=== PATIENT | male | born 2000 | race Caucasian/White ===

== ENCOUNTER 2020-08-23 04:36 | Emergency (ER) | payer OTHER, SELFPAY ==
[2020-08-23 05:20] VITALS: BP 128/72; PULSE 70; RESP 16; TEMP 35.8; O2SAT 100
[2020-08-23 05:54] LABS: MANUAL DIFF FLAG NO
[2020-08-23 05:55] LABS: Basophils Percent Auto 0.3 % (0-2); Eosinophils Absolute Auto 0.1 X10*3/uL (0.0-0.4); Eosinophils Percent Auto 0.9 % (0-4); Hematocrit 45.9 % (42-52); Hemoglobin 15.6 g/dl (14.0-18.0); Imm Gran Abs Auto 0.02 X10*3/uL (0.00-0.03); Imm Gran Pct Auto 0.2 % (0.0-0.4); Lymphocytes Absolute Auto 2.6 X10*3/uL (1.2-4.9); Lymphocytes Percent Auto 23.8 % (20-40); Mean Corpuscular Volume 91.3 fL (80-98); Mean Platelet Volume 10.5 fL (9.4-12.4); Monocytes Absolute Auto 0.9 X10*3/uL (0.1-1.2); Monocytes Percent Auto 7.7 % (2-11); Neutrophils Absolute Auto 7.4 X10*3/uL (2.0-8.3); Neutrophils Percent Auto 67.1 % (45-73); Platelet Count 308 X10*3/uL (160-400); Red Blood Count 5.03 X10*6/uL (4.60-5.80); Red Cell Distribution Width 11.9 % (11.0-16.0)
[2020-08-23 06:22] LABS: Alanine Aminotransferase 11 U/L (0-40); Albumin Level 4.3 g/dL (3.5-5.0); Alkaline Phosphatase 53 U/L (39-117); Anion Gap 10 (12-20); Aspartate Amino Transferase 10 U/L (5-37); Bilirubin Total 0.6 mg/dL (0.0-1.0); Blood Urea Nitrogen 17 mg/dL (9-16); Calcium 9.2 mg/dL (8.4-10.2); Carbon Dioxide 26 mmol/L (22-29); Chloride 105 mmol/L (96-108); Creatinine Clr Calc Pharmacy 103.4; Estimated Glomerular Filt Rate > 60; Glucose Random 93 mg/dL (60-115); Lipase 23 U/L (8-78); Potassium 3.9 mmol/l (3.3-5.1); Sodium 137 mmol/L (135-145); Total Protein 7.4 g/dL (6.5-8.0)
--- NOTE | 2020-08-23 06:41 | ED.ABDPAIN ---
HPI - Abdominal Pain General Chief Complaint: Abdominal Pain Stated Complaint: ABD PAIN Time Seen by Provider: 08/23/20 06:41 Source: patient Mode of arrival: ambulatory Limitations: no limitations History of Present Illness MD elicited complaint: abdominal pain Onset (ago): day(s) (yesterday) Pain Consistency: constant Location: epigastric Severity: moderate Quality: stabbing Radiation: none Migration to: no migration Exacerbating factors: eating Relieving factors: nothing Associated symptoms: nausea Related Data Home Medications Medication Instructions Recorded Confirmed omeprazole 1 cap PO DAILY 08/23/20 08/23/20 Previous Rx's Medication Instructions Recorded dicyclomine 20 mg PO TID PRN #30 tab 08/23/20 ondansetron HCl [Zofran] 4 mg PO Q8H PRN #20 tab 08/23/20 Allergies Allergy/AdvReac Type Severity Reaction Status Date / Time No Known Allergies Allergy Verified 08/23/20 06:42 Review of Systems Review of Systems Constitutional : No Weight loss, No Fever, No Chills ENT/Mouth : No sore throat, No Rhinorrhea Eyes: No Swelling, No Redness Cardiovascular : No Chest Pain, No SOB, NoEdema Respiratory : No Cough, No Sputum, No Wheezing Gastrointestinal : Positive Nausea, no Vomiting, no Diarrhea, positive abdominal Pain, No Hematochezia, No Melena Genitourinary : No Dysuria, No Urinary Frequency, No Hematuria, No Urgency Musculoskeletal : No joint pain, No Myalgias, No Joint Swelling Skin : No Skin Lesions, No rash Neuro : No Weakness, No Numbness, No Dizziness, No Headache Psych : No Anxiety/Panic, No Depression Heme/Lymph: No Bruising, No Lymphadenopathy Endocrine : No Polyuria, No Polydipsia All other systems reviewed and are negative. Physical Exam Vital Signs and I&O and Narrative: Vital Signs and I&O: Vital Signs Temp 97.8 F 08/23/20 09:56 Pulse 63 08/23/20 09:56 Resp 18 08/23/20 09:56 BP 108/58 L 08/23/20 09:56 Pulse Ox 100 08/23/20 09:56 Intake & Output 08/22/20 08/23/20 08/23/20 18:59 06:59 18:59 Intake Total 1000 / 1000 Balance 1000 / 1000 Weight 54.431 kg Intake: Intake, IV Amoun t 1000 / 1000 0.9 % Sodium C hloride 1,000 ml 1000 / 1000 @ 999 mls/hr I VCONT .Q1H1M [facility] Rx#:[id number] Body Mass Index 20.0 Appearance: Alert. Oriented X3. No acute distress. Eyes: Pupils equal, round and reactive to light. ENT: Pharynx normal. Neck: Normal inspection. Neck supple. CVS: Normal heart rate and rhythm. Pulses normal. Respiratory: No respiratory distress. Breath sounds normal. Abdomen: Soft and mild ttp to epigastric area Skin: Skin warm and dry. Normal skin color. Normal skin turgor. Extremities: No lower extremity edema. No lower extremity edema. Neuro: Oriented X 3. No motor deficit. No sensory deficit. Course Course Course Narrative: no acute findings, labs reassuring stable for DC MDM - Abdominal Pain MDM Narrative Medical decision making narrative: patient with hx of Hirschsprungs disease here with abdominal pain and nausea, hx of SBO in the past, at this time given his history and pain will need labs, IV morphine, CT scan for obstruction/infection, dispo per results and findings Lab Data Result diagrams: 08/23/20 05:49 08/23/20 05:49 Labs: Lab Results 08/23/20 08/23/20 08/23/20 Range/Units 05:49 05:49 05:49 WBC 11.0 H (4.8-10.8) X10*3/uL RBC 5.03 (4.60-5.80) X10*6/uL Hgb 15.6 (14.0-18.0) g/dl Hct 45.9 (42-52) % MCV 91.3 (80-98) fL MCH 31.0 (27.0-33.0) pg MCHC 34.0 (31.0-36.0) g/dl RDW 11.9 (11.0-16.0) % Plt Count 308 (160-400) X10*3/uL MPV 10.5 (9.4-12.4) fL Immature Gran % (Auto) 0.2 (0.0-0.4) % Neut % (Auto) 67.1 (45-73) % Lymph % (Auto) 23.8 (20-40) % [place] % (Auto) 7.7 (2-11) % Eos % (Auto) 0.9 (0-4) % Baso % (Auto) 0.3 (0-2) % Neut # (Auto) 7.4 (2.0-8.3) X10*3/uL Lymph # (Auto) 2.6 (1.2-4.9) X10*3/uL [place]ha # (Auto) 0.9 (0.1-1.2) X10*3/uL Eos # (Auto) 0.1 (0.0-0.4) X10*3/uL Baso # (Auto) 0.0 (0.0-0.2) X10*3/uL Abs Immat Gran (auto) 0.02 (0.00-0.03) X10*3/uL Absolute Nucleated RBC 0.000 (0.0-0.012) X10*3/uL Nucleated RBC % (auto) 0.0 (0.0-0.2) /100WBC Hold Blue Top SEE NOTE Sodium 137 (135-145) mmol/L Potassium 3.9 (3.3-5.1) mmol/l Chloride 105 (96-108) mmol/L Carbon Dioxide 26 (22-29) mmol/L Anion Gap 10 L (12-20) BUN 17 H (9-16) mg/dL Creatinine 0.87 (0.5-1.4) mg/dL Estim Creat Clear Calc 103.4 Estimated GFR > 60 Random Glucose 93 (60-115) mg/dL Calcium 9.2 (8.4-10.2) mg/dL Total Bilirubin 0.6 (0.0-1.0) mg/dL AST 10 (5-37) U/L ALT 11 (0-40) U/L Alkaline Phosphatase 53 (39-117) U/L Total Protein 7.4 (6.5-8.0) g/dL Albumin 4.3 (3.5-5.0) g/dL Lipase 23 (8-78) U/L Urine pH (5.0-8.0) Ur Specific [place] (1.005-1.025) Urine Protein (NEG-TRACE) MG/DL Urine Glucose (UA) (NEG) MG/DL Urine Ketones (NEG) MG/DL Urine Blood (NEG) Urine Nitrite (NEG) Ur Leukocyte Esterase (NEG) 10/06/20 Range/Units 08:55 WBC (4.8-10.8) X10*3/uL RBC (4.60-5.80) X10*6/uL Hgb (14.0-18.0) g/dl Hct (42-52) % MCV (80-98) fL MCH (27.0-33.0) pg MCHC (31.0-36.0) g/dl RDW (11.0-16.0) % Plt Count (160-400) X10*3/uL MPV (9.4-12.4) fL Immature Gran % (Auto) (0.0-0.4) % Neut % (Auto) (45-73) % Lymph % (Auto) (20-40) % [place] % (Auto) (2-11) % Eos % (Auto) (0-4) % Baso % (Auto) (0-2) % Neut # (Auto) (2.0-8.3) X10*3/uL Lymph # (Auto) (1.2-4.9) X10*3/uL [place] # (Auto) (0.1-1.2) X10*3/uL Eos # (Auto) (0.0-0.4) X10*3/uL Baso # (Auto) (0.0-0.2) X10*3/uL Abs Immat Gran (auto) (0.00-0.03) X10*3/uL Absolute Nucleated RBC (0.0-0.012) X10*3/uL Nucleated RBC % (auto) (0.0-0.2) /100WBC Hold Blue Top Sodium (135-145) mmol/L Potassium (3.3-5.1) mmol/l Chloride (96-108) mmol/L Carbon Dioxide (22-29) mmol/L Anion Gap (12-20) BUN (9-16) mg/dL Creatinine (0.5-1.4) mg/dL Estim Creat Clear Calc Estimated GFR Random Glucose (60-115) mg/dL Calcium (8.4-10.2) mg/dL Total Bilirubin (0.0-1.0) mg/dL AST (5-37) U/L ALT (0-40) U/L Alkaline Phosphatase (39-117) U/L Total Protein (6.5-8.0) g/dL Albumin (3.5-5.0) g/dL Lipase (8-78) U/L Urine pH 6.0 (5.0-8.0) Ur Specific [place] <= 1.005 (1.005-1.025) Urine Protein NEG (NEG-TRACE) MG/DL Urine Glucose (UA) NEG (NEG) MG/DL Urine Ketones NEG (NEG) MG/DL Urine Blood NEG (NEG) Urine Nitrite NEG (NEG) Ur Leukocyte Esterase NEG (NEG) Discharge Plan Discharge Clinical Impression: Abdominal pain Patient Disposition: Home, Self-Care Instructions: Abdominal Pain (ED) Additional Instructions: increase omeprazole to 40mg daily Prescriptions: New ondansetron HCl [Zofran] 4 mg tablet 4 mg PO Q8H PRN (Reason: nausea and vomiting) Qty: 20 RF: 0 dicyclomine 20 mg tablet 20 mg PO TID PRN (Reason: cramps) Qty: 30 RF: 0 No Action omeprazole 20 mg capsule,delayed release(DR/EC) 1 cap PO DAILY RF: 0 Stand Alone Forms: Work/School Release [facility] Past Medical History Medical History (Updated 08/23/20 @ 10:12 by Concepcion Kaur DO) Acid reflux Hirschsprung's disease Social History Social History (Updated 08/23/20 @ 06:55 by Concepcion Kaur DO) Alcohol intake: never Smoking Status: Never smoker Advance Directives: No Advance Directives Information Provided: No
--- NOTE | 2020-08-23 06:42 | CT_ITS ---
EXAMINATION: CT ABDOMEN AND PELVIS WITH CONTRAST CLINICAL INFORMATION: Epigastric pain COMPARISON: None TECHNIQUE: Multidetector volumetric images were obtained from the superior aspect of the liver through the pubic symphysis following administration 85 mL of Omnipaque 350 intravenous contrast. Sagittal and coronal reformatted images were obtained on the technologist's workstation. Oral contrast: No This CT examination was performed using dose optimization techniques as appropriate, variously including the following: *Automated exposure control *Adjustment of mA and/or kV according to patient size (this includes techniques or standardized protocols for targeted exams where dose is matched to indication/reason for exam; i.e. extremities or head) *Use of iterative reconstruction technique DLP: 288 mGy-cm FINDINGS: LUNG BASES: The visualized lung bases are unremarkable. LIVER, GALLBLADDER, AND BILIARY TREE: The liver is normal in size, shape, and attenuation. No focal hepatic lesion or biliary ductal dilatation is present. The gallbladder is unremarkable with no evidence of radiopaque gallstones, gallbladder wall thickening, or obvious pericholecystic inflammatory changes. PANCREAS: Homogeneous enhancement. No inflammatory changes. SPLEEN: Unremarkable. ADRENAL GLANDS: Unremarkable. KIDNEYS AND URETERS: The kidneys are normal in size, shape, and attenuation. No hydronephrosis, hydroureter, or calculi seen. No perinephric stranding. Small hypodense lesions in bilateral kidneys, too small to characterize, statistically probably cysts. BLADDER: Unremarkable. GASTROINTESTINAL TRACT: Lack of intra-abdominal fat limits evaluation. Stomach is nondistended limiting evaluation. No dilated small or large bowel loops is seen. Moderate fecal matter in the large colon. No colonic wall thickening or pericolonic inflammatory changes are seen. There are surgical clips in the pelvis. No dilated small bowel loops. Cecum is in the right upper quadrant. The appendix is not visualized. A tubular structure suspected to be the appendix in the right upper quadrant, appears unremarkable. No inflammatory change is evident in this region. No free fluid or free air. ABDOMINAL WALL: No significant hernia is appreciated. LYMPH NODES: No pathologically enlarged lymph nodes identified. VASCULAR: Normal caliber aorta. Portal vein is enhancing. PELVIC VISCERA: Within normal limits. OSSEOUS STRUCTURES: No acute or suspicious osseous abnormality seen. IMPRESSION: 1. No acute findings identified in the abdomen or pelvis. Etiology of the patient's symptoms has not been determined. 2. Lack of intra-abdominal fat limiting evaluation. The stomach is nondistended.
[2020-08-23] MEDS: ondansetron HCL 4 MG/2 ML VIAL IVPUSH (07:06)
[2020-08-23] MEDS: 0.9 % Sodium Chloride 1,000 ML 999 ML IVCONT (07:06)
[2020-08-23] MEDS: Morphine Sulfate 4 MG/ML CARTRIDGE IVPUSH (07:07)
[2020-08-23 07:09] VITALS: BP 113/62; RESP 16; O2SAT 100
--- NOTE | 2020-08-23 07:24 | PC.NURSE ---
REPORT FROM [facility]. AWAITING CT ABD. MEDICATED PER ORDERS
[2020-08-23] MEDS: diphenhydrAMINE HCL 50 MG/ML VIAL 25 MG IVPUSH (07:44)
--- NOTE | 2020-08-23 07:45 | PC.NURSE ---
pt with fine scattered hives s/p morphiine. no other signs allergic rx
--- NOTE | 2020-08-23 08:32 | PC.NURSE ---
off unit to ct
[2020-08-23 08:46] VITALS: BP 123/71; PULSE 81; O2SAT 100
[2020-08-23] MEDS: iohexoL 350 MG/ML 100 ML INFUS..BTL IV (08:55)
[2020-08-23 09:02] LABS: Glucose Urine UA NEG (NEG); Leukocyte Esterase Urine NEG (NEG); Nitrite Urine NEG (NEG); Specific Gravity - Urine <= 1.005 (1.005-1.025); Urine Blood NEG (NEG); Urine Ketones NEG (NEG); Urine Protein NEG (NEG-TRACE)
[2020-08-23] MEDS: Ketorolac Tromethamine 15 MG/ML VIAL 30 MG IV (09:05)
--- NOTE | 2020-08-23 09:06 | PC.NURSE ---
MEDICATED WITH TORADOL FOR CONTINUING PAIN
[2020-08-23 09:56] VITALS: BP 108/58; PULSE 63; RESP 18; TEMP 36.6; O2SAT 100
[2020-08-23 11:20] LABS: Appearance Urine CLEAR; Color Urine YELLOW
== END 2020-08-23 10:36 | disposition home or self-care (01) ==
PROVIDERS: Emergency Provider Emergency Medicine; PCP Internal Medicine
DX: R10.9 Unspecified abdominal pain (principal)
CPT/HCPCS: 36415; 74177; 80053; 81003; 83690; 85025; 96361; 96374; 96375; 99284; J1200; J1885; J2270; J2405

== ENCOUNTER 2021-03-29 02:22 | Emergency (ER) | payer OTHER, SELFPAY ==
--- NOTE | ~2021-03-29 | XR_ITS ---
EXAMINATION: XR CHEST CLINICAL INFORMATION: Shortness of breath COMPARISON: 12/14/2019 TECHNIQUE: Frontal view of the chest was obtained. FINDINGS: The lungs are well expanded. There is no focal consolidation, edema, or effusion. No pneumothorax. The cardiomediastinal silhouette is within normal limits. No acute osseous abnormality. XR/XR chest 1V IMPRESSION: No acute pulmonary finding.
[2021-03-29 02:27] VITALS: BP 134/91; PULSE 87; RESP 22; TEMP 36.6; O2SAT 100; BMI 20.7
--- NOTE | 2021-03-29 02:34 | ECG_ITS ---
Test Reason : SOB Blood Pressure : / mmHG Vent. Rate : 066 BPM Atrial Rate : 066 BPM P-R Int : 114 ms QRS Dur : 092 ms QT Int : 364 ms P-R-T Axes : 042 080 019 degrees QTc Int : 381 ms Normal sinus rhythm Normal ECG No previous ECGs available Referred By: Kay Mcgarry Electronically Signed By:Logan Machuca
--- NOTE | 2021-03-29 02:41 | ED.SOB ---
HPI - SOB/Dyspnea General Chief Complaint: Dyspnea Stated Complaint: sob Time Seen by Provider: 03/29/21 02:28 Source: patient Mode of arrival: ambulatory Limitations: no limitations History of Present Illness HPI Narrative: Patient comes to emergency room reporting shortness of breath, starting 1 hour prior to arrival, midsternal chest tightness. Patient states that shortness of breath became worse 30 minutes prior to arrival. Patient states people at his house smoke which worsened shortness of breath. On arrival, oxygen saturation 100% on room air Related Data Home Medications Medication Instructions Recorded Confirmed omeprazole 1 cap PO DAILY 08/23/20 08/23/20 Previous Rx's Medication Instructions Recorded dicyclomine 20 mg PO TID PRN #30 tab 08/23/20 ondansetron HCl [Zofran] 4 mg PO Q8H PRN #20 tab 08/23/20 fluticasone propionate [Flonase 1 spray INTRANASAL Q12H #16 g 03/29/21 Allergy Relief] Allergies Allergy/AdvReac Type Severity Reaction Status Date / Time No Known Allergies Allergy Verified 03/29/21 02:26 Review of Systems Review of Systems: Constitutional : No Weight loss, No Fever, No Chills, No Night Sweats, No Fatigue, No Malaise ENT/Mouth : No Hearing loss, No Ear Pain, No Nasal Congestion, No Sinus Pain, No Hoarseness, No sore throat, No Rhinorrhea, No Swallowing Difficulty Eyes: No Eye Pain, No Swelling, No Redness, No Foreign Body, No Discharge, No Vision Changes Cardiovascular : Complaining of chest tightness, No Edema, No Palpitations Respiratory : Complaining of dry Cough, No Sputum, No Wheezing, No Smoke Exposure, complaining of acute onset shortness of breath Gastrointestinal : No Nausea, No Vomiting, No Diarrhea, No Constipation, No abdominal Pain, No Hematochezia, No Melena Genitourinary : no irregular bleeding, No Dysuria, No Urinary Frequency, No Hematuria, No Urinary Incontinence, No Urgency, No Flank Pain, No Urinary Flow Changes, No Hesitancy Musculoskeletal : No joint pain, No Myalgias, No Joint Swelling Skin : No Skin Lesions, No rash Neuro : No Weakness, No Numbness, No Paresthesias, No Loss of Consciousness, No Dizziness, No Headache Psych : No Anxiety/Panic, No Depression, No SI/HI/AH/VH, No Social Issues, Heme/Lymph: No Bruising, No Bleeding,No Lymphadenopathy Endocrine : No Polyuria, No Polydipsia, No Temperature Intolerance [facility] Past Medical History Medical History (Updated 03/29/21 @ 04:19 by Kay Mcgarry MD) Acid reflux Hirschsprung's disease Social History Social History (Updated 08/23/20 @ 06:55 by Concepcion Kaur DO) Alcohol intake: never Smoking Status: Never smoker Advance Directives: No Physical Exam Vital Signs: Vital Signs: Last Vital Signs Temp 97.8 F 03/29/21 02:27 Pulse 87 03/29/21 02:27 Resp 22 H 03/29/21 02:27 BP 134/91 H 03/29/21 02:27 Pulse Ox 100 03/29/21 02:27 Body Mass Index 20.7 Appearance: Alert. Oriented X3. No acute distress. Very anxious, speaking in full sentences Eyes: Pupils equal, round and reactive to light. ENT: Pharynx normal. Neck: Normal inspection. Neck supple. No lymph nodes noted. No crepitus CVS: Normal heart rate and rhythm. Pulses normal. Normal S1 and S2 Respiratory: No respiratory distress. Breath sounds normal. No Wheezing. No rales Abdomen: Soft and nontender. No rigidity. No distention. good BS x4 Skin: Skin warm and dry. Normal skin color. Normal skin turgor. Extremities: No lower extremity edema. No lower extremity edema. No Lacerations. No Rash Neuro: Oriented X 3. No motor deficit. No sensory deficit. Moving all extermities. No slurred speech. Course Course Course Narrative: On arrival, patient is very anxious, stated that he could not speak due to shortness of breath. Once he was informed that his oxygen saturation is 100% and that his lungs are clear, no wheezing, he was able to immediately speaking full sentences. Patient states that he has never had anxiety/panic attacks. Patient states he has good relief of symptoms after 1 tablet of p.o. Ativan I discussed the labs with the patient, no acute findings. Patient requesting her medication for his nasal congestion. Patient states he is already taking Catherine but is not working well. MDM - SOB/Dyspnea Lab Data Result diagrams: 03/29/21 02:54 03/29/21 02:54 Labs: Lab Results 03/29/21 03/29/21 03/29/21 Range/Units 02:54 02:54 02:54 WBC 9.8 (4.8-10.8) X10*3/uL RBC 5.58 (4.60-5.80) X10*6/uL Hgb 17.0 (14.0-18.0) g/dl Hct 49.7 (42-52) % MCV 89.1 (80-98) fL MCH 30.5 (27.0-33.0) pg MCHC 34.2 (31.0-36.0) g/dl RDW 11.7 (11.0-16.0) % Plt Count 333 (160-400) X10*3/uL MPV 10.2 (9.4-12.4) fL Immature Gran % (Auto) 0.2 (0.0-0.4) % Neut % (Auto) 57.3 (45-73) % Lymph % (Auto) 29.1 (20-40) % [place] % (Auto) 8.1 (2-11) % Eos % (Auto) 4.8 H (0-4) % Baso % (Auto) 0.5 (0-2) % Lymph # (Auto) 2.8 (1.2-4.9) X10*3/uL [place] # (Auto) 0.8 (0.1-1.2) X10*3/uL Eos # (Auto) 0.5 H (0.0-0.4) X10*3/uL Baso # (Auto) 0.1 (0.0-0.2) X10*3/uL Abs Immat Gran (auto) 0.02 (0.00-0.03) X10*3/uL Absolute Neuts (auto) 5.6 (2.0-8.3) X10*3/uL Absolute Nucleated RBC 0.000 (0.0-0.012) X10*3/uL Nucleated RBC % (auto) 0.0 (0.0-0.2) /100WBC D-Dimer < 200 NG/ML Sodium 139 (135-145) mmol/L Potassium 4.1 (3.3-5.1) mmol/L Chloride 103 (96-108) mmol/L Carbon Dioxide 25 (22-29) mmol/L Anion Gap 15 (12-20) BUN 15 (9-16) mg/dL Creatinine 0.92 (0.5-1.4) mg/dL Estim Creat Clear Calc 100.3 Estimated GFR > 60 Random Glucose 97 (60-115) mg/dL Calcium 10.6 H D (8.4-10.2) mg/dL Troponin I High Sens (<3.5-35.0) ng/L COVID-19 (CHRISTINA) (Negative) COVID-19 Clin Com 03/29/21 03/29/21 Range/Units 02:54 02:54 WBC (4.8-10.8) X10*3/uL RBC (4.60-5.80) X10*6/uL Hgb (14.0-18.0) g/dl Hct (42-52) % MCV (80-98) fL MCH (27.0-33.0) pg MCHC (31.0-36.0) g/dl RDW (11.0-16.0) % Plt Count (160-400) X10*3/uL MPV (9.4-12.4) fL Immature Gran % (Auto) (0.0-0.4) % Neut % (Auto) (45-73) % Lymph % (Auto) (20-40) % [place] % (Auto) (2-11) % Eos % (Auto) (0-4) % Baso % (Auto) (0-2) % Lymph # (Auto) (1.2-4.9) X10*3/uL [place] # (Auto) (0.1-1.2) X10*3/uL Eos # (Auto) (0.0-0.4) X10*3/uL Baso # (Auto) (0.0-0.2) X10*3/uL Abs Immat Gran (auto) (0.00-0.03) X10*3/uL Absolute Neuts (auto) (2.0-8.3) X10*3/uL Absolute Nucleated RBC (0.0-0.012) X10*3/uL Nucleated RBC % (auto) (0.0-0.2) /100WBC D-Dimer NG/ML Sodium (135-145) mmol/L Potassium (3.3-5.1) mmol/L Chloride (96-108) mmol/L Carbon Dioxide (22-29) mmol/L Anion Gap (12-20) BUN (9-16) mg/dL Creatinine (0.5-1.4) mg/dL Estim Creat Clear Calc Estimated GFR Random Glucose (60-115) mg/dL Calcium (8.4-10.2) mg/dL Troponin I High Sens < 3.5 (<3.5-35.0) ng/L COVID-19 (CHRISTINA) Negative (Negative) COVID-19 Clin Com See Note Imaging Data Chest x-ray: Radiologist's impression: The lungs are well expanded. There is no focal consolidation, edema, or effusion. No pneumothorax. The cardiomediastinal silhouette is within normal limits. No acute osseous abnormality. XR/XR chest 1V IMPRESSION: No acute pulmonary finding. ECG Data Attestation: I personally reviewed and interpreted this ECG as follows: (Sinus rhythm, heart rate 66, no ST segment depression or elevation, nonspecific T-wave inversion in lead 3, QTC 381) Discharge Plan Discharge Clinical Impression: Congested nose, Anxiety, Shortness of breath Patient Disposition: Home, Self-Care Instructions: Dyspnea (ED), Anxiety (ED) Additional Instructions: Please follow-up with your primary care physician tomorrow. If you have any worsening or new symptoms, please return to the emergency room or call 911 Prescriptions: New fluticasone propionate [Flonase Allergy Relief] 50 mcg/actuation spray,suspension 1 spray intranasal Q12H Qty: 16 RF: 0 No Action omeprazole 20 mg capsule,delayed release(DR/EC) 1 cap PO DAILY RF: 0 ondansetron HCl [Zofran] 4 mg tablet 4 mg PO Q8H PRN (Reason: nausea and vomiting) Qty: 20 RF: 0 dicyclomine 20 mg tablet 20 mg PO TID PRN (Reason: cramps) Qty: 30 RF: 0
[2021-03-29] MEDS: LORazepam 1 MG TABLET PO (02:52)
[2021-03-29 03:01] LABS: Basophils Absolute Auto 0.1 X10*3/uL (0.0-0.2); Basophils Percent Auto 0.5 % (0-2); Eosinophils Absolute Auto 0.5 X10*3/uL (0.0-0.4); Eosinophils Percent Auto 4.8 % (0-4); Hematocrit 49.7 % (42-52); Imm Gran Abs Auto 0.02 X10*3/uL (0.00-0.03); Imm Gran Pct Auto 0.2 % (0.0-0.4); Lymphocytes Absolute Auto 2.8 X10*3/uL (1.2-4.9); Lymphocytes Percent Auto 29.1 % (20-40); MANUAL DIFF FLAG NO; Mean Corpuscular HGB Conc 34.2 g/dl (31.0-36.0); Mean Corpuscular Hemoglobin 30.5 pg (27.0-33.0); Mean Corpuscular Volume 89.1 fL (80-98); Mean Platelet Volume 10.2 fL (9.4-12.4); Monocytes Absolute Auto 0.8 X10*3/uL (0.1-1.2); Monocytes Percent Auto 8.1 % (2-11); Neutrophils Absolute Auto 5.6 X10*3/uL (2.0-8.3); Neutrophils Percent Auto 57.3 % (45-73); Platelet Count 333 X10*3/uL (160-400); Red Blood Count 5.58 X10*6/uL (4.60-5.80); Red Cell Distribution Width 11.7 % (11.0-16.0); White Blood Count 9.8 X10*3/uL (4.8-10.8)
[2021-03-29 03:12] LABS: D Dimer < 200 NG/ML
[2021-03-29 03:18] LABS: COVID-19 Test Negative (Negative); IDNOW Serial# 9DD0AD1C
[2021-03-29 03:30] LABS: Anion Gap 15 (12-20); Blood Urea Nitrogen 15 mg/dL (9-16); Calcium 10.6 mg/dL (8.4-10.2); Carbon Dioxide 25 mmol/L (22-29); Chloride 103 mmol/L (96-108); Creatinine Clr Calc Pharmacy 100.3; Estimated Glomerular Filt Rate > 60; Glucose Random 97 mg/dL (60-115); Potassium 4.1 mmol/L (3.3-5.1); Sodium 139 mmol/L (135-145)
[2021-03-29 03:32] LABS: Troponin-I High Sensitivity < 3.5 ng/L (<3.5-35.0)
== END 2021-03-29 04:38 | disposition home or self-care (01) ==
PROVIDERS: Emergency Provider Emergency Medicine
DX: R06.02 Shortness of breath (principal); F41.9 Anxiety disorder, unspecified; F43.0 Acute stress reaction; Z79.899 Other long term (current) drug therapy; Z20.822 Contact with and (suspected) exposure to COVID-19
CPT/HCPCS: 36415; 71045; 80048; 84484; 85025; 85379; 87635; 93005; 99284

== ENCOUNTER 2021-05-11 12:28 | Emergency (ER) | payer MEDICAID, SELFPAY ==
--- NOTE | ~2021-05-11 | XR_ITS ---
EXAMINATION: XR ABDOMEN KUB CLINICAL INDICATION: Pain, rule out obstruction COMPARISON: None TECHNIQUE: AP view of the abdomen. FINDINGS: The bowel gas pattern is normal with no evidence of ileus or obstruction. No unusual soft tissue calcifications are noted. The bones are unremarkable. Clips in the pelvis noted consistent previous surgery. No pneumoperitoneum. XR/XR KUB IMPRESSION: Unremarkable examination.
[2021-05-11 13:33] VITALS: BP 109/67; PULSE 71; RESP 18; TEMP 36.9; O2SAT 100
--- NOTE | 2021-05-11 15:17 | ED_ITS ---
HPI - Abdominal Pain General Chief Complaint: Abdominal Pain Stated Complaint: abd pain Time Seen by Provider: 05/11/21 14:38 Source: patient Mode of arrival: ambulatory History of Present Illness HPI narrative: 20-year-old female with a past medical history of acid reflux, Hirschsprung, presenting to the ED complaining of heartburn/epigastric abdominal pain, nausea, vomiting, and abdominal bloating since yesterday. Admits to normal BMs, and is passing flatus. Also reports dysuria and concentrated urine. Denies fever, chills, diarrhea/constipation, hematuria, frequency, flank pain MD elicited complaint: abdominal pain Related Data Home Medications Medication Instructions Recorded Confirmed omeprazole 1 cap PO DAILY 08/23/20 08/23/20 Previous Rx's Medication Instructions Recorded dicyclomine 20 mg PO TID PRN #30 tab 08/23/20 ondansetron HCl [Zofran] 4 mg PO Q8H PRN #20 tab 08/23/20 fluticasone propionate [Flonase 1 spray INTRANASAL Q12H #16 g 03/29/21 Allergy Relief] dicyclomine 20 mg PO QID PRN #14 tab 05/11/21 Allergies Allergy/AdvReac Type Severity Reaction Status Date / Time No Known Allergies Allergy Verified 05/11/21 13:33 Review of Systems Review of Systems Constitutional: No Fever, No Chills, No Fatigue, No Malaise Cardiovascular: No Chest Pain, No SOB, No Edema Respiratory: No Cough, No Dyspnea Gastrointestinal: + Nausea, + Vomiting, No Diarrhea, No Constipation, + Abdominal pain, No Hematochezia, No Melena, +bloating Genitourinary: No Dysuria, No Urinary Frequency, No Hematuria, No Flank Pain Musculoskeletal: No joint pain, No Myalgias Skin: No Skin Lesions, No rash Neuro: No Weakness, No Numbness, No Dizziness, No Headache Yes all other systems are reviewed and are negative Physical Exam Vital Signs: Vital Signs: Last Vital Signs Temp 98.5 F 05/11/21 15:32 Pulse 68 05/11/21 15:32 Resp 18 05/11/21 15:32 BP 117/58 L 05/11/21 15:32 Pulse Ox 100 05/11/21 15:32 Body Mass Index 20.0 Const: General: cooperative, healthy appearing and no acute distress Orientation/consciousness: patient oriented x3 Limitations: no limitations HENMT: Head: Yes normal to inspection Ears: hearing grossly normal bilaterally General nose exam: Normal external nose present Face and sinus: Yes normal facial exam Eyes: General: appearance normal, both eyes and all related structures EOM: EOMs intact bilaterally Neck: Neck: Yes normal visual inspection and Yes no meningeal signs Resp: Effort & Inspection: normal respiratory effort Cardio: Rate: regular rate GI: Inspection: Yes normal to inspection Palpation (GI): Soft to palpation, Tenderness to palpation present (GI) in the epigastrum, no guarding and not rigid : General: Yes no CVA tenderness Back/Spine/Pelvis: Back: no CVA tenderness Skin: Rashes: no rashes Wounds: no wounds Neuro: General: patient oriented x3 and no meningeal signs Gait exam (Neuro): Normal gait present Extrem: General: Yes normal to inspection Course Course Course Narrative: -labs and UA unremarkable -1700--ED care transferred to [facility] pending KUB and anticipated DC home MDM - Abdominal Pain MDM Narrative Medical decision making narrative: 20-year-old female with a past medical history of acid reflux, Hirschsprung, presenting to the ED complaining of heartburn/epigastric abdominal pain, nausea, vomiting, and abdominal bloating since yesterday. On exam VSS, NAD, nontoxic appearing, abdomen soft epigastric TTP, no rebound or guarding, no CVAT. Concern for gastritis/GERD vs gastroenteritis vs pancreatitis vs SBO. Low concern for diverticulitis/appendicitis line Plan: Labs, UA, KUB, IVF, symptomatic treatment, reassess Medical Records Attestation: I reviewed the patient's medical records. Lab Data Attestation: I reviewed the patient's lab results. Result diagrams: 05/11/21 15:22 05/11/21 15:22 Labs: Lab Results 05/11/21 05/11/21 05/11/21 Range/Units 15:19 15:22 15:22 WBC 7.1 (4.8-10.8) X10*3/uL RBC 5.29 (4.60-5.80) X10*6/uL Hgb 16.1 (14.0-18.0) g/dl Hct 47.6 (42-52) % MCV 90.0 (80-98) fL MCH 30.4 (27.0-33.0) pg MCHC 33.8 (31.0-36.0) g/dl RDW 11.8 (11.0-16.0) % Plt Count 307 (160-400) X10*3/uL MPV 10.4 (9.4-12.4) fL Immature Gran % (Auto) 0.1 (0.0-0.4) % Neut % (Auto) 64.2 (45-73) % Lymph % (Auto) 27.3 (20-40) % [place] % (Auto) 7.7 (2-11) % Eos % (Auto) 0.4 (0-4) % Baso % (Auto) 0.3 (0-2) % Lymph # (Auto) 2.0 (1.2-4.9) X10*3/uL [place] # (Auto) 0.6 (0.1-1.2) X10*3/uL Eos # (Auto) 0.0 (0.0-0.4) X10*3/uL Baso # (Auto) 0.0 (0.0-0.2) X10*3/uL Abs Immat Gran (auto) 0.01 (0.00-0.03) X10*3/uL Absolute Neuts (auto) 4.6 (2.0-8.3) X10*3/uL Absolute Nucleated RBC 0.000 (0.0-0.012) X10*3/uL Nucleated RBC % (auto) 0.0 (0.0-0.2) /100WBC Sodium 137 (135-145) mmol/L Potassium 5.0 D (3.3-5.1) mmol/L Chloride 105 (96-108) mmol/L Carbon Dioxide 24 (22-29) mmol/L Anion Gap 13 (12-20) BUN 11 (9-16) mg/dL Creatinine 0.77 (0.5-1.4) mg/dL Estim Creat Clear Calc 115.8 Estimated GFR > 60 Random Glucose 82 (60-115) mg/dL Calcium 10.0 (8.4-10.2) mg/dL Magnesium 2.1 (1.6-2.6) mg/dL Total Bilirubin 0.6 (0.0-1.0) mg/dL Direct Bilirubin 0.2 (0.0-0.5) mg/dL AST 16 D (5-37) U/L ALT 8 (0-40) U/L Alkaline Phosphatase 64 D (39-117) U/L Total Protein 9.0 H D (6.5-8.0) g/dL Albumin 4.9 (3.5-5.0) g/dL Lipase 26 (8-78) U/L Urine Color YELLOW Urine Appearance HAZY Urine pH 7.0 (5.0-8.0) Ur Specific [place] 1.010 (1.005-1.025) Urine Protein NEG (NEG-TRACE) MG/DL Urine Glucose (UA) NEG (NEG) MG/DL Urine Ketones NEG (NEG) MG/DL Urine Blood NEG (NEG) Urine Nitrite NEG (NEG) Ur Leukocyte Esterase NEG (NEG) Discharge Plan Discharge Clinical Impression: Abdominal bloating Instructions: Gas and Bloating (ED) Additional Instructions: Your labs and urine are unremarkable. Jennifer will help with abdominal cramping You need to follow-up with your GI doctor Make sure you are staying hydrated at home If her symptoms persist or worsen, your not having a bowel movement or passing gas, or pain becomes constant or worsening or you have persistent nausea/vomiting return to the ED immediately Prescriptions: New dicyclomine 20 mg tablet 20 mg PO QID PRN (Reason: abdominal discomfort) Qty: 14 RF: 0 No Action omeprazole 20 mg capsule,delayed release(DR/EC) 1 cap PO DAILY RF: 0 ondansetron HCl [Zofran] 4 mg tablet 4 mg PO Q8H PRN (Reason: nausea and vomiting) Qty: 20 RF: 0 dicyclomine 20 mg tablet 20 mg PO TID PRN (Reason: cramps) Qty: 30 RF: 0 fluticasone propionate [Flonase Allergy Relief] 50 mcg/actuation spray,suspension 1 spray intranasal Q12H Qty: 16 RF: 0 Referrals: Chava Farley [Physician] - 2 days Stand Alone Forms: Work/School Release [facility] Past Medical History Attestation statement: The following information was validated with the patient. Medical History (Updated 05/11/21 @ 16:49 by MAILE De La Rosa) Acid reflux Hirschsprung's disease Social History Social History (Updated 08/23/20 @ 06:55 by Concepcion Kaur DO) Alcohol intake: never Patient Tobacco Use Status: Never used Tobacco Use of substances other than those prescribed or required for medical reasons: No Advance Directives: Yes Advance Directives Information Provided: Yes Advance Directives on File: No
[2021-05-11 15:28] LABS: MANUAL DIFF FLAG NO
[2021-05-11 15:30] LABS: Basophils Percent Auto 0.3 % (0-2); Eosinophils Percent Auto 0.4 % (0-4); Hematocrit 47.6 % (42-52); Hemoglobin 16.1 g/dl (14.0-18.0); Imm Gran Abs Auto 0.01 X10*3/uL (0.00-0.03); Imm Gran Pct Auto 0.1 % (0.0-0.4); Lymphocytes Percent Auto 27.3 % (20-40); Mean Corpuscular HGB Conc 33.8 g/dl (31.0-36.0); Mean Corpuscular Hemoglobin 30.4 pg (27.0-33.0); Mean Platelet Volume 10.4 fL (9.4-12.4); Monocytes Absolute Auto 0.6 X10*3/uL (0.1-1.2); Monocytes Percent Auto 7.7 % (2-11); Neutrophils Absolute Auto 4.6 X10*3/uL (2.0-8.3); Neutrophils Percent Auto 64.2 % (45-73); Platelet Count 307 X10*3/uL (160-400); Red Blood Count 5.29 X10*6/uL (4.60-5.80); Red Cell Distribution Width 11.8 % (11.0-16.0); White Blood Count 7.1 X10*3/uL (4.8-10.8)
[2021-05-11 15:30] LABS: Glucose Urine UA NEG (NEG); Leukocyte Esterase Urine NEG (NEG); Nitrite Urine NEG (NEG); Urine Blood NEG (NEG); Urine Ketones NEG (NEG); Urine Protein NEG (NEG-TRACE)
[2021-05-11] MEDS: Famotidine/PF 20 MG/2 ML VIAL IVPUSH (15:30)
[2021-05-11] MEDS: 0.9 % Sodium Chloride 1,000 ML 999 ML IVCONT (15:30)
[2021-05-11] MEDS: ondansetron HCL 4 MG/2 ML VIAL IVPUSH (15:30)
[2021-05-11 15:32] VITALS: BP 117/58; PULSE 68; RESP 18; TEMP 36.9; O2SAT 100
[2021-05-11 15:33] LABS: Appearance Urine HAZY; Color Urine YELLOW
[2021-05-11 15:52] LABS: Alanine Aminotransferase 8 U/L (0-40); Albumin Level 4.9 g/dL (3.5-5.0); Alkaline Phosphatase 64 U/L (39-117); Anion Gap 13 (12-20); Aspartate Amino Transferase 16 U/L (5-37); Bilirubin Direct 0.2 mg/dL (0.0-0.5); Bilirubin Total 0.6 mg/dL (0.0-1.0); Blood Urea Nitrogen 11 mg/dL (9-16); Carbon Dioxide 24 mmol/L (22-29); Chloride 105 mmol/L (96-108); Creatinine Clr Calc Pharmacy 115.8; Estimated Glomerular Filt Rate > 60; Glucose Random 82 mg/dL (60-115); Lipase 26 U/L (8-78); Magnesium 2.1 mg/dL (1.6-2.6); Sodium 137 mmol/L (135-145)
== END 2021-05-11 19:18 | disposition home or self-care (01) ==
PROVIDERS: Physician Assistant; Emergency Provider Emergency Medicine; PCP Internal Medicine
DX: R14.0 Abdominal distension (gaseous) (principal); R10.13 Epigastric pain; R30.0 Dysuria; K21.9 Gastro-esophageal reflux disease without esophagitis; Z79.899 Other long term (current) drug therapy; Q43.1 Hirschsprung's disease
CPT/HCPCS: 36415; 74018; 80048; 80076; 81003; 83690; 83735; 85025; 96361; 96374; 96375; 99284; J2405

== ENCOUNTER → 2021-10-09 13:16 | Outpatient (BNVA) | payer MEDICAID, SELFPAY | PROVIDERS: PCP Internal Medicine; Referring Provider Internal Medicine; Visit Provider Internal Medicine Gastroenterology | DX: R10.13 Epigastric pain (principal) | CPT/HCPCS: 99202 ==

== ENCOUNTER 2021-10-24 10:03 | Outpatient (REF) | payer MEDICAID, SELFPAY ==
[2021-10-26 12:46] LABS: H Pylori Breath Test Negative (Negative)
== END 2021-10-24 10:04 | disposition home or self-care (01) ==
LOC: HO.LNP 10:03
PROVIDERS: PCP Internal Medicine; Referring Provider Internal Medicine; Visit Provider Internal Medicine Gastroenterology
DX: A04.8 Other specified bacterial intestinal infections (principal)
CPT/HCPCS: 83013

== ENCOUNTER 2021-11-04 14:39 | Emergency (ER) | payer MEDICAID, SELFPAY ==
--- NOTE | ~2021-11-04 | XR_ITS ---
EXAMINATION: XR CHEST CLINICAL INFORMATION: Shortness of breath. COMPARISON: 03/29/21. TECHNIQUE: 2 views of the chest were obtained. FINDINGS: No significant abnormality is noted involving the heart, lungs, mediastinum, bony thorax or soft tissues. No focal consolidation or other abnormality. XR/XR chest 2V IMPRESSION: Unremarkable examination.
[2021-11-04 14:53] VITALS: BP 128/57; PULSE 99; RESP 24; TEMP 36.7; O2SAT 97; BMI 20.2
--- NOTE | 2021-11-04 14:56 | ECG_ITS ---
Test Reason : SOB Blood Pressure : / mmHG Vent. Rate : 089 BPM Atrial Rate : 089 BPM P-R Int : 122 ms QRS Dur : 094 ms QT Int : 342 ms P-R-T Axes : 075 085 034 degrees QTc Int : 416 ms Normal sinus rhythm Normal ECG When compared with ECG of 29-MAR-2021 03:24, No significant change was found Referred By: Dolly Lr Electronically Signed By:CUONG LANCASTER MD
--- NOTE | 2021-11-04 15:10 | ED.SOB ---
HPI - SOB/Dyspnea General Chief Complaint: Dyspnea Stated Complaint: SoB, trouble breathing Time Seen by Provider: 11/04/21 14:56 Source: patient Mode of arrival: ambulatory Limitations: no limitations History of Present Illness HPI Narrative: 21-year-old male with a past medical history of acid reflux, Hirschsprung, presenting to the ED with complaints of sudden onset of shortness of breath/right-sided lower lung pain that started prior to arrival out of no where. He reports that he has never had this pain in the past. He denies any fevers, chills, headaches, changes in vision, jaw pain, nausea/vomiting, cough, falls or trauma, history of spontaneous pneumothorax, abdominal pain, back pain, recent travel or sick contacts or any other symptoms complaints or concerns at this time. MD elicited complaint: shortness of breath, pain with inspiration and chest pain Onset (ago): minute(s) (Prior to arrival) Timing: constant and progressively worsening Severity: severe Exacerbating factors: movement, coughing, inspiration, talking and deep breaths Relieving factors: nothing Associated symptoms: chest pain and pain with inspiration Treatment prior to arrival: none Related Data Home oxygen amount: none Home Medications Medication Instructions Recorded Confirmed omeprazole 20 mg capsule,delayed 1 cap PO DAILY 08/23/20 08/23/20 release Previous Rx's Medication Instructions Recorded dicyclomine 20 mg tablet 20 mg PO TID PRN #30 tab 08/23/20 ondansetron HCl 4 mg tablet 4 mg PO Q8H PRN #20 tab 08/23/20 (Zofran) fluticasone propionate 50 1 spray INTRANASAL Q12H #16 g 03/29/21 mcg/actuation nasal spray,suspension (Flonase Allergy Relief) dicyclomine 20 mg tablet 20 mg PO QID PRN #14 tab 05/11/21 lorazepam 1 mg tablet (Ativan) 1 mg PO Q6H PRN #10 tab 11/04/21 Allergies Allergy/AdvReac Type Severity Reaction Status Date / Time No Known Allergies Allergy Verified 10/09/21 13:23 Review of Systems Review of Systems: Constitutional : No Weight loss, No Fever, No Chills, No Night Sweats, No Fatigue, No Malaise ENT/Mouth : No Hearing loss, No Ear Pain, No Nasal Congestion, No Sinus Pain, No Hoarseness, No sore throat, No Rhinorrhea, No Swallowing Difficulty Eyes: No Eye Pain, No Swelling, No Redness, No Foreign Body, No Discharge, No Vision Changes Cardiovascular : + Chest Pain, + SOB, No Dyspnea on Exertion, No Orthopnea, No Edema, No Palpitations Respiratory : No Cough, No Sputum, No Wheezing, No Smoke Exposure, + Dyspnea Gastrointestinal : No Nausea, No Vomiting, No Diarrhea, No Constipation, No abdominal Pain, No Hematochezia, No Melena Genitourinary : no irregular bleeding, No Dysuria, No Urinary Frequency, No Hematuria, No Urinary Incontinence, No Urgency, No Flank Pain, No Urinary Flow Changes, No Hesitancy Musculoskeletal : No joint pain, No Myalgias, No Joint Swelling Skin : No Skin Lesions, No rash Neuro : No Weakness, No Numbness, No Paresthesias, No Loss of Consciousness, No Dizziness, No Headache Psych : No Anxiety/Panic, No Depression, No SI/HI/AH/VH, No Social Issues, Heme/Lymph: No Bruising, No Bleeding,No Lymphadenopathy Endocrine : No Polyuria, No Polydipsia, No Temperature Intolerance Yes all other systems are reviewed and are negative [facility] Past Medical History Attestation statement: The following information was validated with the patient. Medical History Acid reflux Hirschsprung's disease Social History Social History Alcohol intake: never Patient Tobacco Use Status: Never used Tobacco Use of substances other than those prescribed or required for medical reasons: No Advance Directives: No Advance Directives Information Provided: Yes Physical Exam Vital Signs: Vital Signs: Last Vital Signs Temp 98.1 F 11/04/21 14:53 Pulse 91 11/04/21 18:14 Resp 18 11/04/21 18:14 BP 125/62 11/04/21 18:14 Pulse Ox 100 11/04/21 18:14 BMI result Body Mass Index 20.2 vital signs have been reviewed as normal and appeared to be correct. Blood pressure 128/57. Heart rate normal. Respiration rate 24. Temperature normal. Oxygen saturation normal. Appearance: Alert. Oriented X3. In acute respiratory distress. Head: Normal external exam. Normocephalic. Atraumatic. Eyes: PERRLA. EOMI. Conjunctiva and sclera normal. Eyelids normal. ENT: EAC normal. TM's Normal. Pharynx normal. Uvula midline. Moist mucous membranes. No trismus noted. No drooling noted. No muffled voice noted. Neck: Normal inspection. Neck supple. FROM. No adenopathy. Thyroid Normal. No meningeal signs. No neck mass noted. CVS: Normal heart rate and rhythm. Heart sound normal. Pulses normal throughout. No murmurs/rales/gallops. Respiratory: In acute respiratory distress with pain on inspiration and expiration with decreased breath sounds to the right lower lungs although no wheezes/rales/rhonchi noted. Chest is tender on the anterior chest wall. No crepitus is noted. Not consistent with fluid chest. No rashes are noted. No accessory muscle usage noted or decreased air movement noted. No stridor noted. Abdomen: Soft and nontender. Bowel sounds normal in all 4 quadrants. No distention noted. No organomegaly noted. No visible injury noted. Back: Full range of motion noted. No rashes/lesion/induration/fluctuance or signs of infection noted. Skin: Skin warm and dry. Normal skin color. Normal skin turgor. No rashes/lesions/lacerations noted. Extremities: No lower extremity edema. No calf tenderness is noted. Extremities exhibit normal range of motion. Extremities nontender. Neuro: Oriented X 3. No motor deficit. No sensory deficit. Reflexes normal. Normal steady gait. No focal neuro deficits noted. Vascular: + radial pulses/+ 2 distal pedal pulses/+2 dorsalis pedis b/l. Normal cap refill. No cyanosis noted to upper extremity nails and lower extremity toes nails. Course Course Course Narrative: 20pm - labs reviewed in patient with an elevated white blood cell count at 12,000. D-dimer 224 therefore technically negative. VBG pH 7.47 otherwise the rest of the BG is within normal limits. Troponin went from 32.5-44.8 an EKG was normal sinus rhythm with nonspecific changes no acute ischemic changes. Chest x-ray is within normal limits. Therefore I consulted with Dr. Nation and he reported that not significant enough delta an EKG is normal per Dr. Nation therefore he reported that he can follow-up with him as an outpatient and to return if any new or worsening symptoms therefore I discussed this with the patient with his at bedside and they understand agree with this plan. Patient reports after the Ativan was given he had mild improvement in his symptoms. Therefore will give a short course of Ativan could be related to stress/anxiety. MDM - SOB/Dyspnea MDM Narrative Medical decision making narrative: 15:15pm - 21-year-old male with a past medical history of acid reflux, Hirschsprung, presenting to the ED with complaints of sudden onset of shortness of breath/right-sided lower lung pain that started prior to arrival out of no where. Concern for spontaneous pneumothorax versus pneumonia versus pleural effusion versus asthma with exacerbation versus anemia versus pulmonary embolism Plan: Labs, EKG, chest x-ray provide nasal cannula oxygen. Provider breathing treatment. Patient refusing COVID swab and then re-evaluate. Medical Records Attestation: I reviewed the patient's medical records. Lab Data Attestation: I reviewed the patient's lab results. Result diagrams: 11/04/21 15:13 11/04/21 15:13 Labs: Lab Results 11/04/21 11/04/21 11/04/21 Range/Units 15:13 15:13 15:13 WBC 12.5 H (4.8-10.8) X10*3/uL RBC 5.07 (4.60-5.80) X10*6/uL Hgb 15.4 (14.0-18.0) g/dl Hct 44.7 (42.0-52.0) % MCV 88.2 (80.0-98.0) fL MCH 30.4 (27.0-33.0) pg MCHC 34.5 (31.0-36.0) g/dl RDW 11.7 (11.0-16.0) % Plt Count 346 (160-400) X10*3/uL MPV 10.2 (9.4-12.4) fL Immature Gran % (Auto) 0.3 (0.0-0.4) % Neut % (Auto) 83.1 H (45-73) % Lymph % (Auto) 10.1 L (20-40) % [place] % (Auto) 6.2 (2-11) % Eos % (Auto) 0.1 (0-4) % Baso % (Auto) 0.2 (0-2) % Lymph # (Auto) 1.3 (1.2-4.9) X10*3/uL [place] # (Auto) 0.8 (0.1-1.2) X10*3/uL Eos # (Auto) 0.0 (0.0-0.4) X10*3/uL Baso # (Auto) 0.0 (0.0-0.2) X10*3/uL Abs Immat Gran (auto) 0.04 H (0.00-0.03) X10*3/uL Absolute Neuts (auto) 10.4 H (2.0-8.3) x10*3/uL Absolute Nucleated RBC 0.000 (0.0-0.012) X10*3/uL Nucleated RBC % (auto) 0.0 (0.0-0.2) /100WBC Hold Purple Top SEE NOTE PT (9.9-13.0) SEC INR (0.9-1.1) D-Dimer High Sensitivty NG/ML VBG pH (7.32-7.43) VBG pCO2 mmHg VBG pO2 mmHg VBG HCO3 (22-26) mmol/L VBG O2 Saturation % VBG Base Excess mmol/L Sodium 140 (135-145) mmol/L Potassium 4.3 (3.3-5.1) mmol/L Chloride 106 (96-108) mmol/L Carbon Dioxide 23 (22-29) mmol/L Anion Gap 15 (12-20) BUN 15 (9-16) mg/dL Creatinine 1.08 (0.5-1.4) mg/dL Estim Creat Clear Calc 83.2 Estimated GFR > 60 Random Glucose 86 (60-115) mg/dL Calcium 10.3 H (8.4-10.2) mg/dL Magnesium 1.9 (1.6-2.6) mg/dL Total Bilirubin 1.0 (0.0-1.0) mg/dL AST 15 (5-37) U/L ALT 12 (0-40) U/L Alkaline Phosphatase 56 (39-117) U/L Total Creatine Kinase 133 (38-174) U/L Troponin I High Sens (<3.5-35.0) ng/L Total Protein 8.3 H (6.5-8.0) g/dL Albumin 4.5 (3.5-5.0) g/dL Lipase 19 (8-78) U/L 11/04/21 11/04/21 11/04/21 Range/Units 15:19 15:58 16:00 WBC (4.8-10.8) X10*3/uL RBC (4.60-5.80) X10*6/uL Hgb (14.0-18.0) g/dl Hct (42.0-52.0) % MCV (80.0-98.0) fL MCH (27.0-33.0) pg MCHC (31.0-36.0) g/dl RDW (11.0-16.0) % Plt Count (160-400) X10*3/uL MPV (9.4-12.4) fL Immature Gran % (Auto) (0.0-0.4) % Neut % (Auto) (45-73) % Lymph % (Auto) (20-40) % [place] % (Auto) (2-11) % Eos % (Auto) (0-4) % Baso % (Auto) (0-2) % Lymph # (Auto) (1.2-4.9) X10*3/uL [place] # (Auto) (0.1-1.2) X10*3/uL Eos # (Auto) (0.0-0.4) X10*3/uL Baso # (Auto) (0.0-0.2) X10*3/uL Abs Immat Gran (auto) (0.00-0.03) X10*3/uL Absolute Neuts (auto) (2.0-8.3) x10*3/uL Absolute Nucleated RBC (0.0-0.012) X10*3/uL Nucleated RBC % (auto) (0.0-0.2) /100WBC Hold Purple Top PT 14.2 H (9.9-13.0) SEC INR 1.2 H (0.9-1.1) D-Dimer High Sensitivty 224 NG/ML VBG pH 7.47 H (7.32-7.43) VBG pCO2 31 mmHg VBG pO2 37 mmHg VBG HCO3 23 (22-26) mmol/L VBG O2 Saturation 66.0 % VBG Base Excess 0.7 mmol/L Sodium (135-145) mmol/L Potassium (3.3-5.1) mmol/L Chloride (96-108) mmol/L Carbon Dioxide (22-29) mmol/L Anion Gap (12-20) BUN (9-16) mg/dL Creatinine (0.5-1.4) mg/dL Estim Creat Clear Calc Estimated GFR Random Glucose (60-115) mg/dL Calcium (8.4-10.2) mg/dL Magnesium (1.6-2.6) mg/dL Total Bilirubin (0.0-1.0) mg/dL AST (5-37) U/L ALT (0-40) U/L Alkaline Phosphatase (39-117) U/L Total Creatine Kinase (38-174) U/L Troponin I High Sens 32.5 (<3.5-35.0) ng/L Total Protein (6.5-8.0) g/dL Albumin (3.5-5.0) g/dL Lipase (8-78) U/L 11/04/21 Range/Units 18:42 WBC (4.8-10.8) X10*3/uL RBC (4.60-5.80) X10*6/uL Hgb (14.0-18.0) g/dl Hct (42.0-52.0) % MCV (80.0-98.0) fL MCH (27.0-33.0) pg MCHC (31.0-36.0) g/dl RDW (11.0-16.0) % Plt Count (160-400) X10*3/uL MPV (9.4-12.4) fL Immature Gran % (Auto) (0.0-0.4) % Neut % (Auto) (45-73) % Lymph % (Auto) (20-40) % [place] % (Auto) (2-11) % Eos % (Auto) (0-4) % Baso % (Auto) (0-2) % Lymph # (Auto) (1.2-4.9) X10*3/uL [place] # (Auto) (0.1-1.2) X10*3/uL Eos # (Auto) (0.0-0.4) X10*3/uL Baso # (Auto) (0.0-0.2) X10*3/uL Abs Immat Gran (auto) (0.00-0.03) X10*3/uL Absolute Neuts (auto) (2.0-8.3) x10*3/uL Absolute Nucleated RBC (0.0-0.012) X10*3/uL Nucleated RBC % (auto) (0.0-0.2) /100WBC Hold Purple Top PT (9.9-13.0) SEC INR (0.9-1.1) D-Dimer High Sensitivty NG/ML VBG pH (7.32-7.43) VBG pCO2 mmHg VBG pO2 mmHg VBG HCO3 (22-26) mmol/L VBG O2 Saturation % VBG Base Excess mmol/L Sodium (135-145) mmol/L Potassium (3.3-5.1) mmol/L Chloride (96-108) mmol/L Carbon Dioxide (22-29) mmol/L Anion Gap (12-20) BUN (9-16) mg/dL Creatinine (0.5-1.4) mg/dL Estim Creat Clear Calc Estimated GFR Random Glucose (60-115) mg/dL Calcium (8.4-10.2) mg/dL Magnesium (1.6-2.6) mg/dL Total Bilirubin (0.0-1.0) mg/dL AST (5-37) U/L ALT (0-40) U/L Alkaline Phosphatase (39-117) U/L Total Creatine Kinase (38-174) U/L Troponin I High Sens 44.8 H (<3.5-35.0) ng/L Total Protein (6.5-8.0) g/dL Albumin (3.5-5.0) g/dL Lipase (8-78) U/L Imaging Data Chest x-ray: Attestation: I personally reviewed and interpreted this imaging study as follows: Radiologist's impression: FINDINGS: No significant abnormality is noted involving the heart, lungs, mediastinum, bony thorax or soft tissues. No focal consolidation or other abnormality. XR/XR chest 2V IMPRESSION: Unremarkable examination. ECG Data Attestation: I personally reviewed and interpreted this ECG as follows: ECG interpretation date: 11/04/21 ECG interpretation time: 03:19 Interpretation: Normal sinus rhythm and a ventricular rate of 89 with a normal [place] interval normal QRS duration normal QT/QTC interval. No acute ischemic changes are noted. Similar when compared to prior EKG 03/29/2021 Critical Care Time Critical Care Time Critical Care Time: Yes Total Critical Care Time: 60 Attestation: I personally attest to this time spent taking care of the patient Discharge Plan Discharge Clinical Impression: Atypical chest pain Patient Disposition: Home, Self-Care Instructions: Noncardiac Chest Pain (ED) Prescriptions: New lorazepam [Ativan] 1 mg tablet 1 mg PO Q6H PRN (Reason: anxiety) Qty: 10 RF: 0 No Action omeprazole 20 mg capsule,delayed release(DR/EC) 1 cap PO DAILY RF: 0 ondansetron HCl [Zofran] 4 mg tablet 4 mg PO Q8H PRN (Reason: nausea and vomiting) Qty: 20 RF: 0 dicyclomine 20 mg tablet 20 mg PO TID PRN (Reason: cramps) Qty: 30 RF: 0 fluticasone propionate [Flonase Allergy Relief] 50 mcg/actuation spray,suspension 1 spray intranasal Q12H Qty: 16 RF: 0 dicyclomine 20 mg tablet 20 mg PO QID PRN (Reason: abdominal discomfort) Qty: 14 RF: 0 Referrals: Hernan Nation MD [Physician] - 2 days (Call to make a follow-up appointment within the next month) Stand Alone Forms: Work/School Release Print Language: Bulgarian
[2021-11-04 15:19] LABS: MANUAL DIFF FLAG NO
[2021-11-04 15:23] LABS: Basophils Percent Auto 0.2 % (0-2); Eosinophils Percent Auto 0.1 % (0-4); Hematocrit 44.7 % (42.0-52.0); Hemoglobin 15.4 g/dl (14.0-18.0); Imm Gran Abs Auto 0.04 X10*3/uL (0.00-0.03); Imm Gran Pct Auto 0.3 % (0.0-0.4); Lymphocytes Absolute Auto 1.3 X10*3/uL (1.2-4.9); Lymphocytes Percent Auto 10.1 % (20-40); Mean Corpuscular HGB Conc 34.5 g/dl (31.0-36.0); Mean Corpuscular Hemoglobin 30.4 pg (27.0-33.0); Mean Corpuscular Volume 88.2 fL (80.0-98.0); Mean Platelet Volume 10.2 fL (9.4-12.4); Monocytes Absolute Auto 0.8 X10*3/uL (0.1-1.2); Monocytes Percent Auto 6.2 % (2-11); Neutrophils Absolute Auto 10.4 x10*3/uL (2.0-8.3); Neutrophils Percent Auto 83.1 % (45-73); Platelet Count 346 X10*3/uL (160-400); Red Blood Count 5.07 X10*6/uL (4.60-5.80); Red Cell Distribution Width 11.7 % (11.0-16.0); White Blood Count 12.5 X10*3/uL (4.8-10.8)
[2021-11-04 15:36] LABS: Venous Blood Gas Refer to POC result
[2021-11-04 15:37] LABS: VBG Base Excess 0.7 mmol/L; VBG HCO3 23 mmol/L (22-26); VBG pCO2 31 mmHg; VBG pH 7.47 (7.32-7.43); VBG pO2 37 mmHg
[2021-11-04 15:47] LABS: Alanine Aminotransferase 12 U/L (0-40); Albumin Level 4.5 g/dL (3.5-5.0); Alkaline Phosphatase 56 U/L (39-117); Anion Gap 15 (12-20); Aspartate Amino Transferase 15 U/L (5-37); Blood Urea Nitrogen 15 mg/dL (9-16); Calcium 10.3 mg/dL (8.4-10.2); Carbon Dioxide 23 mmol/L (22-29); Chloride 106 mmol/L (96-108); Creatinine Clr Calc Pharmacy 83.2; Estimated Glomerular Filt Rate > 60; Glucose Random 86 mg/dL (60-115); Magnesium 1.9 mg/dL (1.6-2.6); Potassium 4.3 mmol/L (3.3-5.1); Sodium 140 mmol/L (135-145); Total Protein 8.3 g/dL (6.5-8.0)
[2021-11-04 16:10] VITALS: BP 121/72; PULSE 73; RESP 14; O2SAT 100
[2021-11-04] MEDS: LORazepam 2 MG/ML VIAL 1 MG IVPUSH (16:12)
[2021-11-04 16:14] LABS: INTERNATIONAL NORM RATIO 1.2 (0.9-1.1); Prothrombin Time 14.2 SEC (9.9-13.0)
[2021-11-04 16:16] LABS: D Dimer High Sensitivity 224 NG/ML
[2021-11-04 16:33] LABS: Troponin-I High Sensitivity 32.5 ng/L (<3.5-35.0)
[2021-11-04 17:20] LABS: Lipase 19 U/L (8-78)
[2021-11-04 18:14] VITALS: BP 125/62; PULSE 91; RESP 18; O2SAT 100
[2021-11-04 19:09] LABS: Troponin-I High Sensitivity 44.8 ng/L (<3.5-35.0)
--- NOTE | 2021-11-04 19:35 | ECG_ITS ---
Test Reason : REPEAT Blood Pressure : / mmHG Vent. Rate : 077 BPM Atrial Rate : 077 BPM P-R Int : 120 ms QRS Dur : 094 ms QT Int : 354 ms P-R-T Axes : 055 085 033 degrees QTc Int : 400 ms Normal sinus rhythm Normal ECG When compared with ECG of 04-NOV-2021 15:19, No significant change was found Referred By: Dolly Lr Electronically Signed By:CUONG LANCASTER MD
== END 2021-11-04 20:35 | disposition home or self-care (01) ==
PROVIDERS: Physician Assistant Medical; Emergency Provider Emergency Medicine
DX: R07.89 Other chest pain (principal); K21.9 Gastro-esophageal reflux disease without esophagitis
CPT/HCPCS: 36415; 71046; 80053; 82550; 82803; 83690; 83735; 84484; 85025; 85379; 85610; 93005; 96374; 99284; 99291; J2060

== ENCOUNTER → 2021-12-12 10:27 | Outpatient (BNVA) | payer MEDICAID, SELFPAY | PROVIDERS: PCP Internal Medicine; Visit Provider Internal Medicine Gastroenterology ==

== ENCOUNTER 2022-02-10 10:25 | Emergency (ER) | payer MEDICAID, SELFPAY ==
--- NOTE | ~2022-02-10 | XR_ITS ---
EXAMINATION: XR CHEST CLINICAL INFORMATION: Cough and fever. COMPARISON: 11/04/2021 TECHNIQUE: 2 views of the chest were obtained. FINDINGS: Lungs are well-inflated and clear. Trachea is midline in position. No interstitial disease, consolidation or mass. No pulmonary edema, pleural effusion or pneumothorax. Cardiac silhouette and pulmonary vessels are normal in size. The mediastinum and theresa have normal contour. The visualized bones and upper abdomen are unremarkable. XR/XR chest 2V IMPRESSION: No evidence of pneumonia. No acute cardiopulmonary abnormality.
[2022-02-10 10:28] VITALS: BP 113/57; PULSE 122; RESP 24; TEMP 37.8; O2SAT 99; BMI 19.7
--- NOTE | 2022-02-10 10:42 | ECG_ITS ---
Test Reason : FEVER Blood Pressure : / mmHG Vent. Rate : 104 BPM Atrial Rate : 104 BPM P-R Int : 114 ms QRS Dur : 086 ms QT Int : 300 ms P-R-T Axes : 041 085 001 degrees QTc Int : 394 ms Sinus tachycardia Otherwise normal ECG When compared with ECG of 04-NOV-2021 19:36, Inverted T waves have replaced nonspecific T wave abnormality in Inferior leads Referred By: Gisella Beebe Electronically Signed By:Logan Machuca
--- NOTE | 2022-02-10 10:50 | ED.URI ---
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 Patient reports waking up sweaty and feeling awful yesterday. He states his son was recently sick with similar symptoms, he was not tested for Flu or Covid and he was just kept home from school until he was better. Patient reports he started coughing up brown phlegm and pus. He tasted blood in his throat after he coughed up brown phlegm. He has chest pains and has a difficult time taking a deep breath. He has been taking DayQuil with no relief in his symptoms. He also reports sore throat. He is not vaccinated for Covid or Flu. MD elicited complaint: fever, cough and sore throat Onset (ago): day(s) (1) Consistency: progressively worsening Severity: severe Description of mucous: purulent, bloody and other (brown) Able to tolerate fluids by mouth: Yes Exacerbating factors: exertion, speaking and deep breaths Relieving factors: nothing Context: sick contacts Associated symptoms: fever, chills, myalgias, diaphoresis, headache, nasal congestion, sore throat, cough, chest pain and shortness of breath Treatments prior to arrival: none Related Data Previous Rx's Medication Instructions Recorded dicyclomine 20 mg tablet 20 mg PO TID PRN #30 tab 08/23/20 ondansetron HCl 4 mg tablet 4 mg PO Q8H PRN #20 tab 08/23/20 (Zofran) fluticasone propionate 50 1 spray INTRANASAL Q12H #16 g 03/29/21 mcg/actuation nasal spray,suspension (Flonase Allergy Relief) dicyclomine 20 mg tablet 20 mg PO QID PRN #14 tab 05/11/21 lorazepam 1 mg tablet (Ativan) 1 mg PO Q6H PRN #10 tab 11/04/21 omeprazole 40 mg capsule,delayed 40 mg PO DAILY #90 cap 01/25/22 release ibuprofen 600 mg tablet 600 mg PO Q8H PRN #20 tab 02/10/22 oseltamivir 75 mg capsule (Tamiflu) 75 mg PO BID 5 Days #10 cap 02/10/22 Allergies Allergy/AdvReac Type Severity Reaction Status Date / Time No Known Allergies Allergy Verified 12/12/21 10:29 Review of Systems Review of Systems: Constitutional: + Fever, + Chills ENT/Mouth: + sore throat, No Rhinorrhea, No Swallowing Difficulty Eyes: No Eye Pain, No Swelling, No Redness Cardiovascular: +Chest Pain, + SOB, No Orthopnea, No Edema Respiratory: + Cough, + Sputum, No Wheezing, + dyspnea Gastrointestinal: No Nausea, No Vomiting, No Diarrhea, No abdominal Pain, No Hematochezia, No Melena Genitourinary: No Dysuria, No Urinary Frequency, No Hematuria Musculoskeletal: + joint pain, +Myalgias Skin: No Skin Lesions, No rash Neuro: + Weakness, No Numbness, + Dizziness, + Headache Psych: No Anxiety/Panic, No Depression Heme/Lymph: No Bruising, No Lymphadenopathy Endocrine: No Polyuria, No Polydipsia [facility] Past Medical History Medical History Acid reflux Hirschsprung's disease Social History Social History Alcohol intake: never Patient Tobacco Use Status: Never used Tobacco Use of substances other than those prescribed or required for medical reasons: No Advance Directives: No Advance Directives Information Provided: No Physical Exam Vital Signs: Vital Signs: Last Vital Signs Temp 101.3 F H 02/10/22 11:23 Pulse 105 H 02/10/22 11:51 Resp 18 02/10/22 11:51 BP 123/47 L 02/10/22 11:23 Pulse Ox 100 02/10/22 11:23 BMI result Body Mass Index 19.7 Appearance: Alert. Oriented X3. Appears ill Eyes: Pupils equal, round and reactive to light. ENT: Pharynx with moist mucus membranes, tonsils enlarged and erythematous without exudate. Uvula midline Neck: Normal inspection. Neck supple. CVS: Tachycardic, regular rhythm Pulses normal. Respiratory: Mild respiratory distress, RR 24. Speaking in short sentences. Breath sounds coarse throughout, no wheezes or rhonchi Abdomen: Soft and nontender. +BS x4 Skin: Skin warm and dry. Normal skin color. Normal skin turgor. No rashes. Extremities: No lower extremity edema. No calf tenderness Neuro: Oriented X 3. No motor deficit. No sensory deficit. Course Course Course Narrative: 21 y/o male presenting with SOB, fevers, chest pain, body aches since yesterday as well as brown phlegm production. He is tachycardic and slightly tachypneic with normal SPO2. No wheezing on exam but coarse. Brown phlegm most consistent with possible Strep pneumonia vs bronchitis. Will also r/o PE with DDIMER given tachycardia and chest pains. CXR, labs, Flu and COVID pending. IVF, albuterol neb and antipyretic ordered. Will reassess. Reevaluation(s) Reevaluation #1: CXR clear. CBC normal. Fever 101.3 now, Motrin also ordered. Labs hemolyzed - recollect pending. Reevaluation #2: Lactic acid normal. HR improved. He is found to be Influenza A positive - he is in the treatment window for Tamiflu, will start now. Reevaluation #3: Chemisty is normal. He is stable for d/c home with Tamiflu and supportive care. MDM - URI/Sore Throat Differential Diagnosis Differential diagnosis: Likely upper respiratory infection, croup, otitis media, sinusitis, viral infection, bronchitis, influenza and pharyngitis Medical Records Attestation: I reviewed the patient's medical records. Lab Data Attestation: I reviewed the patient's lab results. Result diagrams: 02/10/22 11:15 02/10/22 11:49 Labs: Lab Results 02/10/22 02/10/22 02/10/22 Range/Units 11:11 11:11 11:11 WBC (4.8-10.8) X10*3/uL RBC (4.60-5.80) X10*6/uL Hgb (14.0-18.0) g/dl Hct (42.0-52.0) % MCV (80.0-98.0) fL MCH (27.0-33.0) pg MCHC (31.0-36.0) g/dl RDW (11.0-16.0) % Plt Count (160-400) X10*3/uL MPV (9.4-12.4) fL Immature Gran % (Auto) (0.0-0.4) % Neut % (Auto) (45-73) % Lymph % (Auto) (20-40) % [place] % (Auto) (2-11) % Eos % (Auto) (0-4) % Baso % (Auto) (0-2) % Lymph # (Auto) (1.2-4.9) X10*3/uL [place] # (Auto) (0.1-1.2) X10*3/uL Eos # (Auto) (0.0-0.4) X10*3/uL Baso # (Auto) (0.0-0.2) X10*3/uL Abs Immat Gran (auto) (0.00-0.03) X10*3/uL Absolute Neuts (auto) (2.0-8.3) x10*3/uL Absolute Nucleated RBC (0.0-0.012) X10*3/uL Nucleated RBC % (auto) (0.0-0.2) /100WBC D-Dimer High Sensitivty NG/ML Sodium (135-145) mmol/L Potassium (3.3-5.1) mmol/L Chloride (96-108) mmol/L Carbon Dioxide (22-29) mmol/L Anion Gap (12-20) BUN (9-16) mg/dL Creatinine (0.5-1.4) mg/dL Estim Creat Clear Calc Estimated GFR Random Glucose (60-115) mg/dL Lactic Acid (0.5-2.0) mmol/L Calcium (8.4-10.2) mg/dL Magnesium (1.6-2.6) mg/dL Total Bilirubin (0.0-1.0) mg/dL Direct Bilirubin (0.0-0.5) mg/dL AST (5-37) U/L ALT (0-40) U/L Alkaline Phosphatase (39-117) U/L Total Protein (6.5-8.0) g/dL Albumin (3.5-5.0) g/dL COVID-19 (CHRISTINA) Negative (Negative) COVID-19 Clin Com See Note Influenza Type A (ISAMAR) Positive A (Negative) Influenza Type B (ISAMAR) Negative (Negative) Influenza A & B Note See Note S. pyogenes GrpA ISAMAR Negative (Negative) 02/10/22 02/10/22 02/10/22 Range/Units 11:15 11:15 11:15 WBC 9.0 (4.8-10.8) X10*3/uL RBC 5.28 (4.60-5.80) X10*6/uL Hgb 16.0 (14.0-18.0) g/dl Hct 47.1 (42.0-52.0) % MCV 89.2 (80.0-98.0) fL MCH 30.3 (27.0-33.0) pg MCHC 34.0 (31.0-36.0) g/dl RDW 11.8 (11.0-16.0) % Plt Count 277 (160-400) X10*3/uL MPV 10.1 (9.4-12.4) fL Immature Gran % (Auto) 0.3 (0.0-0.4) % Neut % (Auto) 82.3 H (45-73) % Lymph % (Auto) 7.1 L (20-40) % [place] % (Auto) 9.7 (2-11) % Eos % (Auto) 0.3 (0-4) % Baso % (Auto) 0.3 (0-2) % Lymph # (Auto) 0.6 L (1.2-4.9) X10*3/uL [place] # (Auto) 0.9 (0.1-1.2) X10*3/uL Eos # (Auto) 0.0 (0.0-0.4) X10*3/uL Baso # (Auto) 0.0 (0.0-0.2) X10*3/uL Abs Immat Gran (auto) 0.03 (0.00-0.03) X10*3/uL Absolute Neuts (auto) 7.4 (2.0-8.3) x10*3/uL Absolute Nucleated RBC 0.000 (0.0-0.012) X10*3/uL Nucleated RBC % (auto) 0.0 (0.0-0.2) /100WBC D-Dimer High Sensitivty 214 NG/ML Sodium (135-145) mmol/L Potassium (3.3-5.1) mmol/L Chloride (96-108) mmol/L Carbon Dioxide (22-29) mmol/L Anion Gap (12-20) BUN (9-16) mg/dL Creatinine (0.5-1.4) mg/dL Estim Creat Clear Calc Estimated GFR Random Glucose (60-115) mg/dL Lactic Acid 1.0 (0.5-2.0) mmol/L Calcium (8.4-10.2) mg/dL Magnesium (1.6-2.6) mg/dL Total Bilirubin (0.0-1.0) mg/dL Direct Bilirubin (0.0-0.5) mg/dL AST (5-37) U/L ALT (0-40) U/L Alkaline Phosphatase (39-117) U/L Total Protein (6.5-8.0) g/dL Albumin (3.5-5.0) g/dL COVID-19 (CHRISTINA) (Negative) COVID-19 Clin Com Influenza Type A (ISAMAR) (Negative) Influenza Type B (ISAMAR) (Negative) Influenza A & B Note S. pyogenes GrpA ISAMAR (Negative) 02/10/22 Range/Units 11:49 WBC (4.8-10.8) X10*3/uL RBC (4.60-5.80) X10*6/uL Hgb (14.0-18.0) g/dl Hct (42.0-52.0) % MCV (80.0-98.0) fL MCH (27.0-33.0) pg MCHC (31.0-36.0) g/dl RDW (11.0-16.0) % Plt Count (160-400) X10*3/uL MPV (9.4-12.4) fL Immature Gran % (Auto) (0.0-0.4) % Neut % (Auto) (45-73) % Lymph % (Auto) (20-40) % [place] % (Auto) (2-11) % Eos % (Auto) (0-4) % Baso % (Auto) (0-2) % Lymph # (Auto) (1.2-4.9) X10*3/uL [place] # (Auto) (0.1-1.2) X10*3/uL Eos # (Auto) (0.0-0.4) X10*3/uL Baso # (Auto) (0.0-0.2) X10*3/uL Abs Immat Gran (auto) (0.00-0.03) X10*3/uL Absolute Neuts (auto) (2.0-8.3) x10*3/uL Absolute Nucleated RBC (0.0-0.012) X10*3/uL Nucleated RBC % (auto) (0.0-0.2) /100WBC D-Dimer High Sensitivty NG/ML Sodium 134 L (135-145) mmol/L Potassium 4.4 (3.3-5.1) mmol/L Chloride 102 (96-108) mmol/L Carbon Dioxide 23 (22-29) mmol/L Anion Gap 13 (12-20) BUN 11 (9-16) mg/dL Creatinine 0.91 (0.5-1.4) mg/dL Estim Creat Clear Calc 98.8 Estimated GFR > 60 Random Glucose 82 (60-115) mg/dL Lactic Acid (0.5-2.0) mmol/L Calcium 9.4 D (8.4-10.2) mg/dL Magnesium 1.8 (1.6-2.6) mg/dL Total Bilirubin 1.0 (0.0-1.0) mg/dL Direct Bilirubin 0.3 (0.0-0.5) mg/dL AST 17 (5-37) U/L ALT 19 (0-40) U/L Alkaline Phosphatase 52 (39-117) U/L Total Protein 7.6 (6.5-8.0) g/dL Albumin 4.1 (3.5-5.0) g/dL COVID-19 (CHRISTINA) (Negative) COVID-19 Clin Com Influenza Type A (ISAMAR) (Negative) Influenza Type B (ISMAAR) (Negative) Influenza A & B Note S. pyogenes GrpA ISAMAR (Negative) ECG Data Attestation: I personally reviewed and interpreted this ECG as follows: ECG interpretation date: 02/10/22 ECG interpretation time: 12:57 Interpretation: Sinus tachycardia, heart rate 104 beats per minute, normal AK interval, normal QTC, no ST segment elevations or depressions. Discharge Plan Discharge Clinical Impression: Influenza A Patient Disposition: Home, Self-Care Instructions: Influenza (DC) Additional Instructions: You tested positive for the Flu today. Your lab workup was otherwise unremarkable and your chest x-ray was clear. Take the prescribed antiviral medication to help decrease the amount of days you are ill. Rest and drink plenty of fluids. Take over the counter cold and flu medications as needed for your symptoms. Take Motrin as needed for fevers and body aches. Prescriptions: New oseltamivir [Tamiflu] 75 mg capsule 75 mg PO BID 5 Days Qty: 10 0RF ibuprofen 600 mg tablet 600 mg PO Q8H PRN (Reason: fever or pain) Qty: 20 0RF No Action ondansetron HCl [Zofran] 4 mg tablet 4 mg PO Q8H PRN (Reason: nausea and vomiting) Qty: 20 0RF dicyclomine 20 mg tablet 20 mg PO TID PRN (Reason: cramps) Qty: 30 0RF fluticasone propionate [Flonase Allergy Relief] 50 mcg/actuation spray,suspension 1 spray intranasal Q12H Qty: 16 0RF Rx Instructions: administer into each nostril dicyclomine 20 mg tablet 20 mg PO QID PRN (Reason: abdominal discomfort) Qty: 14 0RF lorazepam [Ativan] 1 mg tablet 1 mg PO Q6H PRN (Reason: anxiety) Qty: 10 0RF omeprazole 40 mg capsule,delayed release(DR/EC) 40 mg PO DAILY Qty: 90 2RF Stand Alone Forms: Work/School Release
[2022-02-10 11:21] LABS: MANUAL DIFF FLAG NO
[2022-02-10] MEDS: Acetaminophen 325 MG TABLET 975 MG PO (11:22)
[2022-02-10] MEDS: 0.9 % Sodium Chloride 1,000 ML 999 ML IVCONT (11:22)
[2022-02-10 11:23] VITALS: BP 123/47; PULSE 106; RESP 18; TEMP 38.5; O2SAT 100
[2022-02-10 11:27] LABS: Basophils Percent Auto 0.3 % (0-2); Eosinophils Percent Auto 0.3 % (0-4); Hematocrit 47.1 % (42.0-52.0); Imm Gran Abs Auto 0.03 X10*3/uL (0.00-0.03); Imm Gran Pct Auto 0.3 % (0.0-0.4); Lymphocytes Absolute Auto 0.6 X10*3/uL (1.2-4.9); Lymphocytes Percent Auto 7.1 % (20-40); Mean Corpuscular Hemoglobin 30.3 pg (27.0-33.0); Mean Corpuscular Volume 89.2 fL (80.0-98.0); Mean Platelet Volume 10.1 fL (9.4-12.4); Monocytes Absolute Auto 0.9 X10*3/uL (0.1-1.2); Monocytes Percent Auto 9.7 % (2-11); Neutrophils Absolute Auto 7.4 x10*3/uL (2.0-8.3); Neutrophils Percent Auto 82.3 % (45-73); Platelet Count 277 X10*3/uL (160-400); Red Blood Count 5.28 X10*6/uL (4.60-5.80); Red Cell Distribution Width 11.8 % (11.0-16.0)
[2022-02-10 11:31] LABS: D Dimer High Sensitivity 214 NG/ML
[2022-02-10 11:35] LABS: COVID-19 Test Negative (Negative); IDNOW Serial# 16C4AD1C
[2022-02-10 11:39] LABS: IDNOW Serial# 08D9AD1C; Influenza A Positive (Negative); Influenza B2 Negative (Negative)
[2022-02-10 11:40] LABS: Strep A Nucleic Acid Negative (Negative)
[2022-02-10] MEDS: Albuterol Sulfate (0.083%) 2.5 MG/3 ML VIAL.NEB 5 MG INHALE (11:50)
[2022-02-10 11:51] VITALS: PULSE 105; RESP 18; O2SAT 98
[2022-02-10] MEDS: Ibuprofen 600 MG TABLET PO (12:05)
[2022-02-10] MEDS: guaiFENesin DM 600/30 1 TAB TAB.ER.12H 2 TAB PO (12:05)
[2022-02-10] MEDS: Oseltamivir Phosphate 75 MG CAPSULE PO (12:05)
[2022-02-10 12:12] LABS: Alanine Aminotransferase 19 U/L (0-40); Albumin Level 4.1 g/dL (3.5-5.0); Alkaline Phosphatase 52 U/L (39-117); Anion Gap 13 (12-20); Aspartate Amino Transferase 17 U/L (5-37); Bilirubin Direct 0.3 mg/dL (0.0-0.5); Blood Urea Nitrogen 11 mg/dL (9-16); Calcium 9.4 mg/dL (8.4-10.2); Carbon Dioxide 23 mmol/L (22-29); Chloride 102 mmol/L (96-108); Creatinine Clr Calc Pharmacy 98.8; Estimated Glomerular Filt Rate > 60; Glucose Random 82 mg/dL (60-115); Magnesium 1.8 mg/dL (1.6-2.6); Potassium 4.4 mmol/L (3.3-5.1); Sodium 134 mmol/L (135-145); Total Protein 7.6 g/dL (6.5-8.0)
== END 2022-02-10 13:08 | disposition home or self-care (01) ==
PROVIDERS: Physician Assistant; Emergency Provider Emergency Medicine
DX: J11.1 Influenza due to unidentified influenza virus with other respiratory manifestations (principal); R50.9 Fever, unspecified; R06.02 Shortness of breath; Z20.822 Contact with and (suspected) exposure to COVID-19
CPT/HCPCS: 36415; 71046; 80048; 80076; 83605; 83735; 85025; 85379; 87040; 87502; 87635; 87651; 93005; 94640; 94644; 96360; 99284; 99285

== ENCOUNTER 2022-04-11 11:27 | Day surgery (SDC) | payer MEDICAID, SELFPAY ==
--- NOTE | 2022-04-10 10:50 | HO.ANESPROP2 ---
Documented by User: Bel Hart NP 04/10/22 10:53 HPI - Anesthesia Eval Consult details Narrative: 21yo M for Upper Endoscopy PMFSH Active Problems Active Problems: All Active Problems (Updated 02/28/22 @ 10:38 by Kya Cm, ROSA) Epigastric abdominal pain (Acute) Past Medical History Medical History Acid reflux Asthma Hirschsprung's disease Hx of influenza Surgical History Surgical History History of dental church Hx of abdominal surgery Social History Social History Alcohol intake: never Patient Tobacco Use Status: Never used Tobacco Use of substances other than those prescribed or required for medical reasons: No Are you DNR?: No Advance Directives: No Advance Directives Information Provided: Yes Meds Allergies Allergy/AdvReac Type Severity Reaction Status Date / Time No Known Allergies Allergy Verified 04/11/22 12:39 Exam Exam Date and Time: April 10, 2022 1050 Pertinent Lab Results Pertinent Lab Results: Laboratory Tests 02/10/22 02/10/22 11:15 11:49 WBC 9.0 Hgb 16.0 Hct 47.1 Plt Count 277 Sodium 134 L Potassium 4.4 Chloride 102 Carbon Dioxide 23 BUN 11 Creatinine 0.91 Assessment and Plan Assessment Anesthesia Assessment: Chart Reviewed Documented by User: Ramona Baldwin MD 04/11/22 14:34 PMFSH Active Problems Active Problems: All Active Problems (Updated 02/28/22 @ 10:38 by Kya Cm RN) Epigastric abdominal pain (Acute) Asthma - outgrew but just started again about 2 weeks ago. Now on daily inhalers. Last used yesterday Past Medical History Medical History Acid reflux Asthma Hirschsprung's disease Hx of influenza Family History Family history of problems with anesthesia: No Surgical History Surgical History History of dental church Hx of abdominal surgery History of Problems with Anesthesia: No Social History Social History Alcohol intake: never Patient Tobacco Use Status: Never used Tobacco Use of substances other than those prescribed or required for medical reasons: No Are you DNR?: No Advance Directives: No Advance Directives Information Provided: Yes Meds Allergies Allergy/AdvReac Type Severity Reaction Status Date / Time No Known Allergies Allergy Verified 04/11/22 12:39 Exam Height,Weight and Vital Signs: Height 5 ft 5 in Weight 55.338 kg Vital Signs Temp Pulse Resp BP Pulse Ox 04/11/22 12:43 98.5 F 64 16 110/62 100 Airway Mallampati Class: I TM Dist: >3cm Neck ROM: Full Partial: Upper Heart: RRR Lungs: CTAB Assessment and Plan Assessment Anesthesia Assessment: Anesthesia Plan Discussed Final Anesthetic Review Family History of Problems with Anesthesia: No History of Problems with Anesthesia: No NPO: Yes ASA Class: II Final Preanesthetic Review: No Changes in Pt Med Stat, Meds/Allgs Chart Reviewed, Consent Obtained/Reviewed and Anes Risks/Benef Reviewed Patient Risk: Low Procedure Risk: Low Assessment/Block/Sedation in SS: Assess/Block/Sedation-SS Anesthetic Plan Anesthetic Plan: MAC: Disposition: Standard PACU
[2022-04-11 12:43] VITALS: BP 110/62; PULSE 64; RESP 16; TEMP 36.9; O2SAT 100; BMI 20.2
[2022-04-11] MEDS: Lactated Ringers 1,000 ML 100 ML IVCONT (13:09)
--- NOTE | 2022-04-11 13:26 | MHC.SHP ---
Pre-Procedural Eval Section A Date of Service: 04/11/22 Section B Chief Complaint: Epigastric pain Relevant Family History (Specify if Yes): No Relevant Social History: None Present Medications: see Short Stay Collaborative assessment Medical History: Significant History (Acid reflux Asthma Hirschsprung's disease Hx of influenza) History of Previous Operations: Relevant previous surgery/procedure and date(s) (colon surgery) Allergies: Allergies Allergy/AdvReac Type Severity Reaction Status Date / Time No Known Allergies Allergy Verified 04/11/22 12:39 Review of Systems Sugical H&P ROS: Negative: Constitution, Cardiovascular, Respiratory, Neurological, Psychiatric, Hem-Onc, Allergic/Immunologic, Gastrointestinal, Genitourinary, Musculoskeletal, Integumentary, Endocrine and Eyes/Ears/Nose/Throat Exam Surgical H&P Exam: Normal: HEENT, Normal: Heart, Normal: Lungs, Normal: Extremities, Normal: Abdomen, Normal: Skin and Normal: Neurological Plan Diagnosis/Plan: Unchanged I have reviewed the history and physical and performed a pertinent physical examination on my patient. No changes have occurred unless specified.
--- NOTE | 2022-04-11 14:07 | P.BOP_ITS ---
Brief Operative Note Date of Service: 04/11/22 Pre-op diagnosis: epigastric pain Post-op diagnosis: same Procedure: see op note Surgeon: Luda Moscoso MD Anesthesia: MAC Was an Waste[employer] Operator used for this Procedure?: No Estimated blood loss (mL): 0 Condition: stable Disposition: PACU
--- NOTE | 2022-04-11 14:07 | W.PM.OPN ---
Operative Note Operative Note Date of Service: 04/11/22 Narrative: Procedure Description: EGD Indication: epigastric pain Anesthesia: MAC FLEXIBLE TRANSORAL UPPER GASTROINTESTINAL ENDOSCOPY UPPER ENDOSCOPY Consent: Indications for the procedure and potential complications of bleeding, perforation, reaction to medications and missed diagnosis were discussed with the patient and informed consent was obtained. Instrument: Olympus GIF H 190 J mid size upper endoscope Monitoring: Vital signs and clinical assessment, continuous EKG monitoring, Pulse oximetry, Carbon Dioxide monitoring and blood pressure monitoring were done throughout the procedure. Procedure: The patient was placed in the left lateral decubitis position and pre-procedure medications were administered and a bite block was placed. The endoscope was inserted into the mouth and advanced under direct vision to the third part of duodenum. A careful inspection was made as the upper endoscope was withdrawn including a retroflexed examination of the proximal stomach; Findings and interventions are described below. Findings: Larynx:normal Esophagus: GE junction at 38 cm, diaphragm hiatus at 38 cm, small linear erosion noted consistent with LA grade A erosive esophagitis, also salmon pink tissue tongues at the GEJ, bx taken to r/o Barretts Stomach: Patchy gastric erythema. Biopsies were obtained. Grade 2 flap valve on retroflexed examination of the cardia. Duodenum: Normal bulb and descending duodenum, bx taken Intervention: Biopsies as noted above Impression/Findings: possible barretts LA grade A erosive esophagitis PLAN: ensure compliance with PPI if h pylori pos then treat if Barretts pos repeat EGD in 3-5 years
[2022-04-11 14:12] VITALS: BP 106/54; PULSE 62; RESP 18; TEMP 36.3; O2SAT 100
[2022-04-11 14:27] VITALS: BP 102/49; PULSE 62; RESP 18; TEMP 36.3; O2SAT 100
[2022-04-11 14:42] VITALS: BP 105/51; PULSE 65; RESP 17; TEMP 36.3; O2SAT 100
== END 2022-04-11 15:31 | disposition home or self-care (01) ==
PROVIDERS: Visit Provider Internal Medicine Gastroenterology
PROC: 0DJ08ZZ Inspection of Upper Intestinal Tract, Via Natural or Artificial Opening Endoscopic (ICD-10-PCS; CPT 43235; principal; 2022-04-11 13:40)
DX: R10.13 Epigastric pain (principal); K21.00 Gastro-esophageal reflux disease with esophagitis, without bleeding; J45.909 Unspecified asthma, uncomplicated; Q43.1 Hirschsprung's disease; Z79.1 Long term (current) use of non-steroidal anti-inflammatories (NSAID); K44.9 Diaphragmatic hernia without obstruction or gangrene
CPT/HCPCS: 43239; 88305; 88342

== ENCOUNTER → 2022-11-30 11:46 | Outpatient (BNVA) | payer MEDICAID, SELFPAY | PROVIDERS: PCP Family Medicine; Visit Provider Internal Medicine Gastroenterology | DX: Z13.89 Encounter for screening for other disorder (principal) ==

== ENCOUNTER → 2022-12-13 08:25 | Outpatient (REF) | payer MEDICAID, SELFPAY ==
--- NOTE | ~2022-12-13 | NM_ITS ---
EXAMINATION: NM RADIONUCLIDE SOLID FOOD GASTRIC EMPTYING 4-HOUR STUDY CLINICAL INFORMATION: Early satiety. COMPARISON: None TECHNIQUE: A standard meal consisting of 4 oz of Egg Beaters brand tagged with 694 microcuries Tc-99m Sulfur Colloid, 8 oz water and 2 slices of toast with jelly was administered orally to the patient. Images were obtained using a dual head gamma camera in the anterior and posterior projections over of the stomach immediately post ingestion and at hourly intervals up to 4 hours post ingestion. The anterior and posterior counts at each time interval were averaged using the geometric mean and expressed as percentage of the immediate post ingestion counts. FINDINGS: There is good visualization of activity in the stomach immediately post ingestion. As the study progresses, there is good clearance of activity from the stomach and visualization of progressively increasing small bowel activity. By the end of the study, there is almost no retention noted in the stomach. Retention in the stomach at each time interval was: 1 hour 72% (normal 37%-90%) 2 hours 26% (normal 30%-60%) 3 hours 29% 4 hours 9% (normal 0%-10%) NM/NM gastric emptying study IMPRESSION: Normal 4-hour solid food gastric emptying study.
== END ==
LOC: HO.NUCMED 08:25
PROVIDERS: PCP Family Medicine; Visit Provider Internal Medicine Gastroenterology
DX: R68.81 Early satiety (principal)
CPT/HCPCS: 78264; A9541

== ENCOUNTER 2022-12-17 14:43 | Outpatient (REF) | payer MEDICAID, SELFPAY ==
--- NOTE | ~2022-12-17 | CT_ITS ---
EXAMINATION: CT ABDOMEN AND PELVIS WITHOUT CONTRAST CLINICAL INFORMATION: Epigastric pain. Additional history was provided of surgery for Hirschsprung's disease with history of colostomies. COMPARISON: Comparison is made to prior CT examinations of 01/18/2019, 05/23/2019 and 08/23/2020. Prior KUB 05/11/2021. TECHNIQUE: Multidetector volumetric imaging was performed from the superior aspect of the liver through the pubic symphysis. Sagittal and coronal reformatted images were obtained on the technologist's workstation. Oral contrast administered. This CT examination was performed using dose optimization techniques as appropriate, variously including the following: *Automated exposure control *Adjustment of mA and/or kV according to patient size (this includes techniques or standardized protocols for targeted exams where dose is matched to indication/reason for exam; i.e. extremities or head) *Use of iterative reconstruction technique DLP: 250 mGy-cm FINDINGS: LUNG BASES: The visualized lung bases are unremarkable. LIVER, GALLBLADDER, AND BILIARY TREE: The liver is normal in size, shape, and attenuation. No focal hepatic lesion or biliary ductal dilatation is present. The gallbladder is unremarkable with no evidence of radiopaque gallstones, gallbladder wall thickening, or obvious pericholecystic inflammatory changes. PANCREAS: Unremarkable. SPLEEN: Unremarkable. ADRENAL GLANDS: Unremarkable. KIDNEYS AND URETERS: The kidneys are normal in size, shape, and attenuation. No hydronephrosis, hydroureter, or calculi seen. No perinephric stranding. BLADDER: Mild deformity at the dome of the bladder, which appears chronic. No acute findings. GASTROINTESTINAL TRACT: The stomach is nondistended. The small bowel is nondistended. Suggestion of mild thickening of the small bowel folds in the jejunum and proximal ileum. The appendix is in the right upper quadrant of the abdomen (images 28-37, series 3). The colonic length is shortened with the cecum in the right upper quadrant and evidence of changes in the pelvis with surgical clips presumably related to a pull-through or other similar procedure for Hirschsprung disease. The colon is mildly distended with gas with moderate stool seen in the right colon in the upper abdomen and moderate stool in the region of the pull-through in the pelvis. No abnormal bowel wall thickening or pneumatosis is seen to suggest Hirschsprung enterocolitis. ABDOMINAL WALL: Atrophic changes are seen in the left rectus muscle presumably postoperative. No evidence of abdominal wall hernia. LYMPH NODES: Normal. VASCULAR: Unremarkable. PELVIC VISCERA: The prostate and seminal vesicles are unremarkable. OSSEOUS STRUCTURES: Incidental bone islands in the femoral heads. Patchy sclerosis in the L3 vertebral body, not significantly changed in size from 08/23/2020. No acute osseous abnormality. CT/CT abdomen pelvis wo IV con IMPRESSION: No evidence of a bowel obstruction. Mild gaseous distention of the colon with stool in the right colon and pull-through in the pelvis. No focal signs of Hirschsprung's enterocolitis. No dilated small bowel loops. Diffusely thickened folds are seen in the jejunum and proximal ileum. The findings are nonspecific but can be seen with malabsorption or enteritis. No evidence of abscess or intra-abdominal fluid collections. The appendix is in the right upper quadrant but normal in appearance.
[2022-12-17] MEDS: Barium Sulfate Oral (Vanilla) 450 ML ORAL.SUSP 900 ML PO (16:57)
== END 2022-12-17 14:44 | disposition home or self-care (01) ==
LOC: HO.CT 14:43
PROVIDERS: PCP Family Medicine; Visit Provider Internal Medicine Gastroenterology
DX: R10.13 Epigastric pain (principal); R19.04 Left lower quadrant abdominal swelling, mass and lump
CPT/HCPCS: 74176

== ENCOUNTER 2023-01-14 15:11 | Outpatient (REF) | payer MEDICAID, SELFPAY ==
--- NOTE | ~2023-01-14 | XR_ITS ---
EXAMINATION: XR ABDOMEN KUB CLINICAL INDICATION: Left lower quadrant abdominal swelling mass lump COMPARISON: CT abdomen from 01/15/2023 TECHNIQUE: AP view of the abdomen. FINDINGS: Abdominal viscera is better evaluated on contemporaneous cross-sectional imaging. Mild prominence of the descending colon. Stool noted in the ascending colon. Osseous structures are intact. Surgical clips in the pelvis. XR/XR KUB IMPRESSION: 1. Abdominal viscera is better evaluated on contemporaneous cross-sectional imaging. 2. Mild prominence of the descending colon. 3. Stool noted in the ascending colon. 4. Osseous structures are intact. 5. Surgical clips in the pelvis.
== END 2023-01-14 15:12 | disposition home or self-care (01) ==
LOC: HO.XRAY 15:11
PROVIDERS: PCP Family Medicine; Referring Provider Family Medicine; Visit Provider Internal Medicine Gastroenterology
DX: R19.04 Left lower quadrant abdominal swelling, mass and lump (principal)
CPT/HCPCS: 74018; 99212

== ENCOUNTER 2023-01-15 02:30 | Observation (INO) | payer MEDICAID, SELFPAY ==
--- NOTE | ~2023-01-15 | CT_ITS ---
EXAMINATION: CT ABDOMEN AND PELVIS WITH CONTRAST CLINICAL INFORMATION: Crohn's disease flareup COMPARISON: 12/17/2022 TECHNIQUE: Multidetector volumetric images were obtained from the superior aspect of the liver through the pubic symphysis following administration 85 mL of Omnipaque 350 intravenous contrast. Sagittal and coronal reformatted images were obtained on the technologist's workstation. Oral contrast: No This CT examination was performed using dose optimization techniques as appropriate, variously including the following: *Automated exposure control *Adjustment of mA and/or kV according to patient size (this includes techniques or standardized protocols for targeted exams where dose is matched to indication/reason for exam; i.e. extremities or head) *Use of iterative reconstruction technique DLP: 393 mGy-cm FINDINGS: LUNG BASES: The visualized lung bases are unremarkable. LIVER, GALLBLADDER, AND BILIARY TREE: The liver is normal in size, shape, and attenuation. No focal hepatic lesion or biliary ductal dilatation is present. The gallbladder is unremarkable with no evidence of radiopaque gallstones, gallbladder wall thickening, or obvious pericholecystic inflammatory changes. PANCREAS: Unremarkable. SPLEEN: Unremarkable. ADRENAL GLANDS: Unremarkable. KIDNEYS AND URETERS: Bilateral nephrograms are symmetric. No hydronephrosis or obstructing calculus identified. BLADDER: Unremarkable. GASTROINTESTINAL TRACT: Redemonstrated postoperative changes of the bowel with shortening colonic length and cecum in the right upper quadrant. No convincing evidence for bowel obstruction. There is a slightly thick-walled appearance of multiple loops of small bowel, without significant surrounding inflammatory change. No free fluid or free air is seen. Cecum is located in the right upper quadrant. Appendix appears at the upper limits of normal in size similar to prior and demonstrates mural prominence, without significant surrounding inflammation. ABDOMINAL WALL: No significant hernia is appreciated. LYMPH NODES: Normal. VASCULAR: Unremarkable. PELVIC VISCERA: Unremarkable. OSSEOUS STRUCTURES: Unremarkable. CT/CT abdomen pelvis w IV con IMPRESSION: 1. Redemonstrated postoperative changes of the bowel. Slightly thick-walled appearance of multiple loops of small bowel which could indicate mild enteritis. No convincing evidence for bowel obstruction. 2. Borderline dilated appendix with mural prominence. Though no significant surrounding inflammation is present, early changes of appendicitis would be difficult to entirely exclude in the proper clinical setting.
[2023-01-15 02:37] VITALS: BP 116/76; PULSE 81; RESP 16; TEMP 36.7; O2SAT 100; BMI 20.3
[2023-01-15 03:08] LABS: MANUAL DIFF FLAG NO
[2023-01-15 03:10] LABS: Basophils Percent Auto 0.2 % (0-2); Eosinophils Absolute Auto 0.1 X10*3/uL (0.0-0.4); Eosinophils Percent Auto 0.8 % (0-4); Hematocrit 45.4 % (42.0-52.0); Hemoglobin 15.8 g/dl (14.0-18.0); Imm Gran Abs Auto 0.04 X10*3/uL (0.00-0.03); Imm Gran Pct Auto 0.3 % (0.0-0.4); Lymphocytes Absolute Auto 1.1 X10*3/uL (1.2-4.9); Mean Corpuscular HGB Conc 34.8 g/dl (31.0-36.0); Mean Corpuscular Hemoglobin 30.2 pg (27.0-33.0); Mean Corpuscular Volume 86.6 fL (80.0-98.0); Mean Platelet Volume 10.2 fL (9.4-12.4); Monocytes Absolute Auto 1.1 X10*3/uL (0.1-1.2); Monocytes Percent Auto 8.4 % (2-11); Neutrophils Absolute Auto 10.2 x10*3/uL (2.0-8.3); Neutrophils Percent Auto 81.3 % (45-73); Platelet Count 315 X10*3/uL (160-400); Red Blood Count 5.24 X10*6/uL (4.60-5.80); Red Cell Distribution Width 11.6 % (11.0-16.0); White Blood Count 12.5 X10*3/uL (4.8-10.8)
--- NOTE | 2023-01-15 03:13 | ED_ITS ---
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 Patient had KUB done earlier which showed dilated bowel Related Data Home Medications Medication Instructions Recorded Confirmed albuterol sulfate 90 mcg/actuation 2 puff inhalation Q4-6H PRN 11/30/22 aerosol inhaler (ProAir HFA) cetirizine 10 mg tablet 10 mg PO DAILY 11/30/22 Previous Rx's Medication Instructions Recorded ondansetron HCl 4 mg tablet 4 mg PO Q8H PRN nausea and 08/23/20 (Zofran) vomiting #20 tabs fluticasone propionate 50 1 spray intranasal Q12H #16 grams 03/29/21 mcg/actuation nasal spray,suspension (Flonase Allergy Relief) lorazepam 1 mg tablet (Ativan) 1 mg PO Q6H PRN anxiety #10 tabs 11/04/21 ibuprofen 600 mg tablet 600 mg PO Q8H PRN fever or pain 02/10/22 #20 tabs oseltamivir 75 mg capsule (Tamiflu) 75 mg PO BID 5 days #10 caps 02/10/22 omeprazole 40 mg capsule,delayed 40 mg PO DAILY #90 caps 11/30/22 release hyoscyamine sulfate 0.125 mg 0.125 mg PO BID-QID PRN dyspepsia 01/14/23 disintegrating tablet #30 tabs peg-electrolyte solution 420 gram 240 ml PO Q10M #4,000 mL 01/14/23 oral solution Allergies Allergy/AdvReac Type Severity Reaction Status Date / Time No Known Allergies Allergy Verified 11/30/22 11:48 Review of Systems Review of Systems Yes all other systems are reviewed and are negative PMFSH Past Medical History Medical History Acid reflux Asthma Hirschsprung's disease Hx of influenza Surgical History History of dental sabianist Hx of abdominal surgery Social History Social History Alcohol intake: never Patient Tobacco Use Status: Never used Tobacco Smoked in Last 30 Days: No Use of substances other than those prescribed or required for medical reasons: No Advance Directives: No Physical Exam ED Vital Signs: Vital Signs - 24 hr 01/15/23 02:37 01/15/23 03:39 01/15/23 05:47 Temperature 98.1 F Pulse Rate 81 84 Respiratory Rate 16 18 16 Blood Pressure 116/76 109/61 Pulse Oximetry 100 100 Oxygen Delivery Method Room Air Room Air BMI result Body Mass Index 20.3 Appearance: Alert. Oriented X3. No acute distress. Eyes: No pallor or icterus ENT: Pharynx normal. Oral Mucosa moist Neck: Normal inspection. Neck supple. CVS: Normal heart rate and rhythm. Pulses normal. Respiratory: No respiratory distress. Equal air entry bilateral, no wheezing/rales/rhonchi Abdomen: Soft diffuse upper abdominal tenderness with no rebound tenderness, Bowel sounds are present, no mass palpable, no CVA tenderness Skin: Skin warm and dry. Normal skin color. Normal skin turgor. Extremities: No lower extremity edema. No calf tenderness Neuro: Oriented X 3. No motor deficit. Medical Decision Making Medical Decision Making [facility] Narrative: 06:15 Patient with Crohn disease diffuse abdominal pain CT scan without any significant obstruction shows inflammation CRP slightly elevated restarted on IV steroids patient also has dilated appendix without any surrounding inflammation clinically patient does not have any pain in right lower quadrant and it seems to be similar enlarged as in the previous CT scans. Will admit patient for Crohn disease flare of for IV steroid and IV hydration Consult Healthcare Provider Management of the patient was discussed with: Hospitalist Lab Data [facility] Lab Attestation statement: I reviewed the patient's lab results. 01/15/23 03:04 01/15/23 03:04 Labs: Lab Results 01/15/23 01/15/23 Range/Units 03:04 03:04 WBC 12.5 H (4.8-10.8) X10*3/uL RBC 5.24 (4.60-5.80) X10*6/uL Hgb 15.8 (14.0-18.0) g/dl Hct 45.4 (42.0-52.0) % MCV 86.6 (80.0-98.0) fL MCH 30.2 (27.0-33.0) pg MCHC 34.8 (31.0-36.0) g/dl RDW 11.6 (11.0-16.0) % Plt Count 315 (160-400) X10*3/uL MPV 10.2 (9.4-12.4) fL Immature Gran % (Auto) 0.3 (0.0-0.4) % Neut % (Auto) 81.3 H (45-73) % Lymph % (Auto) 9.0 L (20-40) % [place] % (Auto) 8.4 (2-11) % Eos % (Auto) 0.8 (0-4) % Baso % (Auto) 0.2 (0-2) % Lymph # (Auto) 1.1 L (1.2-4.9) X10*3/uL [place] # (Auto) 1.1 (0.1-1.2) X10*3/uL Eos # (Auto) 0.1 (0.0-0.4) X10*3/uL Baso # (Auto) 0.0 (0.0-0.2) X10*3/uL Abs Immat Gran (auto) 0.04 H (0.00-0.03) X10*3/uL Absolute Neuts (auto) 10.2 H (2.0-8.3) x10*3/uL Absolute Nucleated RBC 0.000 (0.0-0.012) X10*3/uL Nucleated RBC % (auto) 0.0 (0.0-0.2) /100WBC Sodium 140 (135-145) mmol/L Potassium 4.6 (3.3-5.1) mmol/L Chloride 106 (96-108) mmol/L Carbon Dioxide 24 (22-29) mmol/L Anion Gap 15 (12-20) BUN 14 (9-16) mg/dL Creatinine 0.86 (0.5-1.4) mg/dL Estim Creat Clear Calc 107.0 Estimated GFR > 60 Random Glucose 108 (60-115) mg/dL Calcium 9.6 (8.4-10.2) mg/dL C-Reactive Protein 0.92 H (< or = 0.50) mg/dL Lipase 23 (8-78) U/L Radiology Impression Discussion of test interpretation with radiology: I have reviewed the radiologist's reading. Radiologist Impression: CT/CT abdomen pelvis w IV con IMPRESSION: 1.? Redemonstrated postoperative changes of the bowel. Slightly thick-walled appearance of multiple loops of small bowel which could indicate mild enteritis. No convincing evidence for bowel obstruction. 2.? Borderline dilated appendix with mural prominence. Though no significant surrounding inflammation is present, early changes of appendicitis would be difficult to entirely exclude in the proper clinical setting. Medications Administered Generic Name Dose Route Start Last Admin Trade Name Freq PRN Reason Stop Dose Admin Sodium Chloride 1,000 mls @ 999 mls/hr 01/15/23 06:06 01/15/23 06:35 Ns IV 01/15/23 07:06 999 mls/hr .Q1H1M ONE Administration Discontinued Medications Generic Name Dose Route Start Last Admin Trade Name Freq PRN Reason Stop Dose Admin Sodium Chloride 1,000 mls @ 999 mls/hr 01/15/23 03:23 01/15/23 06:38 Ns IV 01/15/23 04:23 Infused .Q1H1M ONE Infusion Iohexol 85 ml 01/15/23 04:51 01/15/23 04:52 Iohexol 350 Mg/Ml 100 Ml Infus..Btl IV 01/15/23 04:52 85 ml ONCE ONE Administration Methylprednisolone Sodium Succinate 125 mg 01/15/23 05:03 01/15/23 05:38 Methylprednisolone Sod Succ 125 Mg/2 Ml Vial IVPUSH 01/15/23 05:04 125 mg ONCE ONE Administration Morphine Sulfate 4 mg 01/15/23 03:23 01/15/23 03:39 Morphine Sulfate 4 Mg/Ml Cartridge IVPUSH 01/15/23 03:24 4 mg ONCE ONE Administration Protocol Ondansetron HCl 4 mg 01/15/23 03:23 01/15/23 03:37 Ondansetron Hcl 4 Mg/2 Ml Vial IVPUSH 01/15/23 03:24 4 mg ONCE ONE Administration Discharge Plan Discharge Clinical Impression: Crohn's disease of both small and large intestine Patient Disposition: Admitted As Inpatient
[2023-01-15 03:34] LABS: Anion Gap 15 (12-20); Blood Urea Nitrogen 14 mg/dL (9-16); Calcium 9.6 mg/dL (8.4-10.2); Carbon Dioxide 24 mmol/L (22-29); Chloride 106 mmol/L (96-108); Estimated Glomerular Filt Rate > 60; Glucose Random 108 mg/dL (60-115); Lipase 23 U/L (8-78); Potassium 4.6 mmol/L (3.3-5.1); Sodium 140 mmol/L (135-145)
[2023-01-15] MEDS: ondansetron HCL 4 MG/2 ML VIAL IVPUSH (03:37)
[2023-01-15] MEDS: 0.9 % Sodium Chloride 1,000 ML 999 ML IV ×2 (03:37→06:35)
[2023-01-15 03:39] VITALS: RESP 18
[2023-01-15] MEDS: Morphine Sulfate 4 MG/ML CARTRIDGE IVPUSH (03:39)
[2023-01-15 03:56] LABS: C Reactive Protein 0.92 mg/dL (< or = 0.50)
[2023-01-15] MEDS: iohexoL 350 MG/ML 100 ML INFUS..BTL 85 ML IV (04:52)
[2023-01-15] MEDS: methylPREDNISolone Sod Succ 125 MG/2 ML VIAL IVPUSH (05:38)
[2023-01-15 05:47] VITALS: BP 109/61; PULSE 84; RESP 16; O2SAT 100
--- NOTE | 2023-01-15 05:48 | PC.NURSE ---
Pt A&Ox4, reports 9/10 intermittent all over ABD pain with N/V/D. States pain feels sharp and hot starting 7pm last night. IV line placed, blood work collected and sent to lab. Meds given as documented.
--- NOTE | 2023-01-15 06:25 | PM.IMHP ---
History of Present Illness Date of Service: 01/15/23 Chief Complaint: Abdominal pain This is a 22-year-old male with pertinent history of Hirschsprung disease status post colostomy, Crohn's disease who presents to the emergency department for evaluation of abdominal discomfort. Patient states he started having generalized abdominal discomfort about 24 hours prior to presentation. He was seen by Dr. Moscoso blast furnace helper earlier in the day with plans for capsule endoscopy. Patient stated that his abdominal discomfort got worse and he had multiple episodes of nausea, non bloody emesis and diarrhea and hence he decided to present to the ER. Patient states he has had multiple flare-ups and has had generalized abdominal discomfort with fullness on and off for about a year. Also has had gastroesophageal reflux disease. He denies fever, chills, chest discomfort, palpitations, shortness of breath, changes in urinary habits In the emergency department, imaging with thick-walled appearance of small bowel indicating enteritis. Review of Systems Constitutional: Constitutional: Reports lethargy and Reports malaise Cardiovascular: Cardiovascular: Reports no additional cardiovascular complaints Respiratory: Respiratory: Reports no additional respiratory complaints Gastrointestinal: Gastrointestinal: Reports abdominal pain, Reports dyspepsia, Reports diarrhea, Reports nausea and Reports vomiting Genitourinary: Genitourinary: Reports no additional male genitourinary complaints [facility] Medical History Acid reflux Asthma Hirschsprung's disease Hx of influenza Surgical History History of dental buddhist Hx of abdominal surgery Social History Alcohol intake: never Patient Tobacco Use Status: Never used Tobacco Smoked in Last 30 Days: No Use of substances other than those prescribed or required for medical reasons: No Advance Directives: No Meds Allergies Allergy/AdvReac Type Severity Reaction Status Date / Time No Known Allergies Allergy Verified 11/30/22 11:48 Active Medications: Current Medications Sodium Chloride (Ns) 1,000 mls @ 999 mls/hr IV .Q1H1M ONE Stop: 01/15/23 07:06 Home Medications Medication Instructions Recorded Confirmed Last Taken Type albuterol sulfate 90 mcg/actuation 2 puff inhalation Q4-6H PRN 11/30/22 Unknown History aerosol inhaler (ProAir HFA) cetirizine 10 mg tablet 10 mg PO DAILY 11/30/22 Unknown History Physical Exam Vital Signs and Narrative: Vital Signs: Last Vital Signs Temp 98.1 F 01/15/23 02:37 Pulse 84 01/15/23 05:47 Resp 16 01/15/23 05:47 BP 109/61 01/15/23 05:47 Pulse Ox 100 01/15/23 05:47 O2 Del Method 01/15/23 05:47 BMI result Body Mass Index 20.3 Middle-aged male lying in bed in mild distress Neck supple, no JVD Regular rate and rhythm, S1-S2 heard Regular breath sounds bilaterally, no wheezing or crackles appreciated Abdomen with generalized tenderness, no guarding, no rigidity Patient is awake, alert and oriented to self, place, time and person ; no focal motor deficit Psych: Normal mood No pedal edema Results Labs 01/15/23 03:04 01/15/23 03:04 Labs: Laboratory Results - last 24 hr 01/15/23 01/15/23 03:04 03:04 MCV 86.6 MCH 30.2 MCHC 34.8 RDW 11.6 Plt Count 315 MPV 10.2 Immature Gran % (Auto) 0.3 Neut % (Auto) 81.3 H Lymph % (Auto) 9.0 L [place] % (Auto) 8.4 Eos % (Auto) 0.8 Baso % (Auto) 0.2 Lymph # (Auto) 1.1 L [place] # (Auto) 1.1 Eos # (Auto) 0.1 Baso # (Auto) 0.0 Abs Immat Gran (auto) 0.04 H Absolute Neuts (auto) 10.2 H Absolute Nucleated RBC 0.000 Nucleated RBC % (auto) 0.0 Anion Gap 15 Estim Creat Clear Calc 107.0 Estimated GFR > 60 Random Glucose 108 Calcium 9.6 C-Reactive Protein 0.92 H Lipase 23 Imaging Radiologist's Impressions: Impressions Abdomen/Pelvis CT 01/15/23 05:06 IMPRESSION: 1. Redemonstrated postoperative changes of the bowel. Slightly thick-walled appearance of multiple loops of small bowel which could indicate mild enteritis. No convincing evidence for bowel obstruction. 2. Borderline dilated appendix with mural prominence. Though no significant surrounding inflammation is present, early changes of appendicitis would be difficult to entirely exclude in the proper clinical setting. Assessment and Plan (1) Abdominal pain: Status: Acute Plan This is a 22-year-old male with pertinent history of Hirschsprung disease status post colostomy, Crohn's disease who presents to the emergency department for evaluation of abdominal discomfort. #. Abdominal discomfort with imaging concerning for enteritis: Patient does have questionable Crohn's disease with possible flare up. Is followed by Dr Moscoso as an outpatient. Will consult GI, appreciate assistance. Keep NPO until GI evaluation. Was given IV steroids in the ER #. Reactive leukocytosis in the setting of above. Defer antibiotics for now NPO until GI evaluation Full code Time Spent With Patient Time: Total time managing care of this patient today ____ minutes. Quality Stroke Does the patient have a stroke diagnosis?: No VTE Prior VTE?: No VTE Risk Level:: Medical - low VTE Device Contraindication: Treatment Not Indicated VTE Drug Contraindication: Treatment Not Indicated
--- NOTE | 2023-01-15 07:41 | PHA.MEDREC ---
Pharmacy Consult ? Medication Reconciliation Pharmacy has completed the medication reconciliation. Spoke to patient. Only takes omeprazole. Got prescribed hyoscyamine but hasn't taken any yet
[2023-01-15] MEDS: Lactated Ringers 1,000 ML 100 ML IVCONT (08:46)
[2023-01-15 08:48] LABS: Erythrocyte Sedimentation Rate 3 MM/HR (0-15)
--- NOTE | 2023-01-15 09:33 | P.CNGI_ITS ---
History of Present Illness Data of Consult Service Date: 01/15/23 Requesting physician: Avelina Sahu Primary Care Provider: Criselda Tejada MD HPI Reason for consult: abdominal pain 22-year-old male with history of Hirschsprung disease status post colostomy, who I am seeing for assessment for abdominal pain. He had been seen in the GI office yesterday due to abdominal pain and abn imaging of small bowel with plan for o/p caspule. Overnight however he had diffuse cramping and stabbing abdominal pain 10/10 in different areas of the abdomen as well as feeling of nausea with non bloody diarrhea and nausea with non bloody emesis. Sx can be worse with food, no relieving factors. He denies fever, chills, chest discomfort, palpitations, shortness of breath, changes in urinary habits Labs with mild elevated crp and WCC, nml LFT, Imaging with small bowel changes and possible dilated appendix He got a dose of steroids and opiate analgesia and is feeling better. Review of Systems Review of Systems: Yes all other systems are reviewed and are negative Constitutional: Constitutional: Reports lethargy and Reports malaise Cardiovascular: Cardiovascular: Reports no additional cardiovascular complaints Respiratory: Respiratory: Reports no additional respiratory complaints Gastrointestinal: Gastrointestinal: Reports abdominal pain, Reports dyspepsia, Reports diarrhea, Reports nausea and Reports vomiting Genitourinary: Genitourinary: Reports no additional male genitourinary complaints PMFSH Past Medical History Medical History Acid reflux Asthma Hirschsprung's disease Hx of influenza Family History Pertinent family history: no fh of crohns, ibd Surgical History Surgical History History of dental rastafari Hx of abdominal surgery Social History Social History Alcohol intake: never Patient Tobacco Use Status: Never used Tobacco Smoked in Last 30 Days: No Use of substances other than those prescribed or required for medical reasons: No Advance Directives: No Meds Allergies Allergy/AdvReac Type Severity Reaction Status Date / Time No Known Allergies Allergy Verified 11/30/22 11:48 Active Medications: Current Medications Acetaminophen (Acetaminophen 325 Mg Tablet) 650 mg PO Q6H PRN PRN Reason: Pain, Mild (Pain Scale 1-3) Lactated Ringer's (Lr) 1,000 mls @ 100 mls/hr IVCONT .Q10H [facility] Last Admin: 01/15/23 08:46 Dose: 100 mls/hr Melatonin (Melatonin 3 Mg Tablet) 6 mg PO BEDTIME PRN PRN Reason: Insomnia Morphine Sulfate (Morphine Sulfate 4 Mg/Ml Cartridge) 4 mg IVPUSH Q4H PRN; Protocol PRN Reason: Pain, Severe (Pain Scale 7-10) Ondansetron HCl (Ondansetron Hcl 4 Mg/2 Ml Vial) 4 mg IVPUSH Q8H PRN PRN Reason: Nausea and Vomiting Sodium Chloride (0.9 % Sodium Chloride Flush 3 Ml Syringe) 3 ml IVFLUSH QSHIFT [facility] Last Admin: 01/15/23 08:46 Dose: Not Given Physical Exam Vital Signs: Vital Signs: Last Vital Signs Temp 98.1 F 01/15/23 02:37 Pulse 84 01/15/23 05:47 Resp 16 01/15/23 05:47 BP 109/61 01/15/23 05:47 Pulse Ox 100 01/15/23 05:47 O2 Del Method 01/15/23 05:47 BMI result Body Mass Index 20.3 EXAM: GENERAL: The patient is well developed and nontoxic. VITAL SIGNS:see workflow HEENT: Nonicteric sclerae, PERRLA, EOMI. Oropharynx clear. Moist mucous membranes. Conjunctivae appear well perfused. No thyroid mass. CHEST: Chest wall is nontender. HEART: Regular rate and rhythm without murmurs. LUNGS: Clear to auscultation bilaterally. ABDOMEN: Soft, positive bowel sounds, nontender, no organomegaly.no flank tenderness SKIN: No rash, no excessive bruising, petechiae, or purpura. NEUROLOGIC: Cranial nerves II-XII intact without motor/sensory deficit. pscyh--nml mood Const: Other: Constitutional : Awake, interactive, not in distress Neck : Normal inspection, Supple Cardiovascular : RRR, no JVP, no lower extremity edema Respiratory : good bilateral air entry, no crackles, wheezes or rhonchi Gastrointestinal: soft, lax, Normal bowel sounds, Non tender Skin : Warm, Dry Neurological : Alert & oriented x3, No focal deficit , CN 2-12 within normal Results Labs 01/15/23 03:04 01/15/23 03:04 Labs: Short CBC 01/15/23 Range/Units 03:04 WBC 12.5 H (4.8-10.8) X10*3/uL Hgb 15.8 (14.0-18.0) g/dl Hct 45.4 (42.0-52.0) % Plt Count 315 (160-400) X10*3/uL BMP 01/15/23 03:04 Sodium 140 Potassium 4.6 Chloride 106 Carbon Dioxide 24 BUN 14 Creatinine 0.[address] scan - abdomen: Attestation: I personally reviewed and interpreted this imaging study as follows: My impression: small bowel enteritis Assessment and Plan (1) Abdominal pain: Status: Acute Plan 1/ Recurrent abdominal pain, with nausea, diarrhea concern for enteritis, main differential would be smll bowel crohns ddx; celiac sprue, autoimmune enteritis, infectious enteritis, infiltrative disease PLAN: 1/ Patient unsure if he wants to go home or stay as he feels improved. If he wishes to stay then can book for push enteroscopy tomorrow otherwise can go with original plan for capsule endoscopy and checking stool lactoferrin, if diarrhea persists would also check c diff and GI stool panel Time Spent With Patient Time: Total time managing care of this patient today ____ minutes. Procedures Date of Service Date of Service: 01/15/23
[2023-01-15 09:51] LABS: Appearance Urine Clear; Color Urine Yellow; Glucose Urine UA Negative (Negative); Leukocyte Esterase Urine Negative (Negative); Nitrite Urine Negative (Negative); PH 6.5 (5.0-9.0); Specific Gravity - Urine >= 1.030 (1.005-1.025); Urine Blood Negative (Negative); Urine Ketones Negative (Negative); Urine Protein Negative (Neg-Trace)
[2023-01-15 10:12] LABS: COVID-19 Test Negative (Negative); IDNOW Serial# 55D5AD1C
--- NOTE | 2023-01-15 10:56 | PM.EVENT ---
Event Note Date of Service: 01/15/23 Event Note: Seen and evaluated this morning Pain mildly better than before Still reporting diarrhea Get surgery evaluation Pending GI input Hold on steroids Continue gentle hydration Time Spent With Patient Time: Total time managing care of this patient today ____ minutes.
[2023-01-15 11:42] VITALS: BP 110/62; PULSE 71; RESP 14; O2SAT 97
--- NOTE | 2023-01-15 13:01 | P.CONGS_ITS ---
History of Present Illness Consult details Consult date: 01/15/23 Narrative: 22-year-old male referred for abdominal pain. He has a complex GI history. He was born with Hirschsprung disease. He therefore has had multiple abdominal surgeries since he was a . He was eventually able to have a pull-through procedure as a child. He was being followed by the Pediatric surgeons in [facility] for a long time. He says that he used to be on MiraLax but his periodic surgeons were able to wean him off of this. he says he now has bowel movements every day. He said that he used to be doing very well well being seen by his pediatric surgeons. However, since he became an adult, he has not seen a surgeon in a long time. He says that for the past 1 or 2 years, he had been having flare ups with regards to crampy abdominal pain. He says that sometimes he may have diarrhea as well he had started seeing GI and he says that he is being worked up for possible Crohn's disease or gluten enteropathy. he had another flare-up abdominal pain yesterday's was admitted by the emergency room. This was diffuse crampy abdominal pain. He denies any vomiting. Review of Systems Constitutional: Constitutional: Denies chills and Denies fever(s) Cardiovascular: Cardiovascular: Denies chest pain, Denies dyspnea and Denies dyspnea on exertion Respiratory: Respiratory: Denies cough, Denies dyspnea and Denies dyspnea on exertion Gastrointestinal: Gastrointestinal: Denies hematochezia and Denies change in bowel habits Genitourinary: Genitourinary: Denies hematuria and Denies difficulty urinating Musculoskeletal: Musculoskeletal: Denies back pain and Denies limited range of motion Neurologic: Denies focal weakness and Denies convulsions Psychiatric: Psychiatric: Denies depression and Denies mood swings PMFSH Past Medical History Medical History Acid reflux Asthma Hirschsprung's disease Hx of influenza Surgical History Surgical History History of dental episcopal Hx of abdominal surgery Social History Social History Alcohol intake: never Patient Tobacco Use Status: Never used Tobacco Smoked in Last 30 Days: No Use of substances other than those prescribed or required for medical reasons: No Advance Directives: No Meds Allergies Allergy/AdvReac Type Severity Reaction Status Date / Time No Known Allergies Allergy Verified 11/30/22 11:48 Active Medications: Current Medications Acetaminophen (Acetaminophen 325 Mg Tablet) 650 mg PO Q6H PRN PRN Reason: Pain, Mild (Pain Scale 1-3) Lactated Ringer's (Lr) 1,000 mls @ 100 mls/hr IVCONT .Q10H REPLACED BY [facility] Last Admin: 01/15/23 08:46 Dose: 100 mls/hr Melatonin (Melatonin 3 Mg Tablet) 6 mg PO BEDTIME PRN PRN Reason: Insomnia Morphine Sulfate (Morphine Sulfate 4 Mg/Ml Cartridge) 4 mg IVPUSH Q4H PRN; Protocol PRN Reason: Pain, Severe (Pain Scale 7-10) Ondansetron HCl (Ondansetron Hcl 4 Mg/2 Ml Vial) 4 mg IVPUSH Q8H PRN PRN Reason: Nausea and Vomiting Sodium Chloride (0.9 % Sodium Chloride Flush 3 Ml Syringe) 3 ml IVFLUSH QSHIFT REPLACED BY [facility] Last Admin: 01/15/23 08:46 Dose: Not Given Physical Exam Vital Signs: Vital Signs: Last Vital Signs Temp 98.1 F 01/15/23 02:37 Pulse 71 01/15/23 11:42 Resp 14 01/15/23 11:42 BP 110/62 01/15/23 11:42 Pulse Ox 97 01/15/23 11:42 O2 Del Method 01/15/23 11:42 BMI result Body Mass Index 20.3 Const: General: comfortable and no acute distress Orientation/consciousness: patient oriented x3 Neck: Neck: Yes no lymphadenopathy Resp: Auscultation: clear to auscultation bilaterally Cardio: Rhythm: regular rhythm GI: Palpation (GI): Soft to palpation, Tenderness to palpation present (GI) ( mild diffuse tenderness), no guarding and not rigid Neuro: General: patient oriented x3 Results Labs 01/15/23 03:04 01/15/23 03:04 Labs: Abnormal lab results 01/15/23 01/15/23 01/15/23 Range/Units 03:04 03:04 09:38 WBC 12.5 H (4.8-10.8) X10*3/uL Neut % (Auto) 81.3 H (45-73) % Lymph % (Auto) 9.0 L (20-40) % Lymph # (Auto) 1.1 L (1.2-4.9) X10*3/uL Abs Immat Gran (auto) 0.04 H (0.00-0.03) X10*3/uL Absolute Neuts (auto) 10.2 H (2.0-8.3) x10*3/uL C-Reactive Protein 0.92 H (< or = 0.50) mg/dL Ur Specific [place] >= 1.030 H (1.005-1.025) Short CBC 01/15/23 Range/Units 03:04 WBC 12.5 H (4.8-10.8) X10*3/uL Hgb 15.8 (14.0-18.0) g/dl Hct 45.4 (42.0-52.0) % Plt Count 315 (160-400) X10*3/uL BMP 01/15/23 03:04 Sodium 140 Potassium 4.6 Chloride 106 Carbon Dioxide 24 BUN 14 Creatinine 0.86 Calcium 9.6 Urine 01/15/23 Range/Units 09:38 Urine Color Yellow Urine Appearance Clear Urine pH 6.5 (5.0-9.0) Ur Specific [place] >= 1.030 H (1.005-1.025) Urine Protein Negative (Neg-Trace) mg/dL Urine Glucose (UA) Negative (Negative) mg/dL All other labs normal. Laboratory Results WBC 12.5 X10*3/uL (4.8-10.8) H 01/15/23 03:04 RBC 5.24 X10*6/uL (4.60-5.80) 01/15/23 03:04 Hgb 15.8 g/dl (14.0-18.0) 01/15/23 03:04 Hct 45.4 % (42.0-52.0) 01/15/23 03:04 MCV 86.6 fL (80.0-98.0) 01/15/23 03:04 MCH 30.2 pg (27.0-33.0) 01/15/23 03:04 MCHC 34.8 g/dl (31.0-36.0) 01/15/23 03:04 RDW 11.6 % (11.0-16.0) 01/15/23 03:04 Plt Count 315 X10*3/uL (160-400) 01/15/23 03:04 MPV 10.2 fL (9.4-12.4) 01/15/23 03:04 Immature Gran % (Auto) 0.3 % (0.0-0.4) 01/15/23 03:04 Neut % (Auto) 81.3 % (45-73) H 01/15/23 03:04 Lymph % (Auto) 9.0 % (20-40) L 01/15/23 03:04 [place] % (Auto) 8.4 % (2-11) 01/15/23 03:04 Eos % (Auto) 0.8 % (0-4) 01/15/23 03:04 Baso % (Auto) 0.2 % (0-2) 01/15/23 03:04 Lymph # (Auto) 1.1 X10*3/uL (1.2-4.9) L 01/15/23 03:04 [place] # (Auto) 1.1 X10*3/uL (0.1-1.2) 01/15/23 03:04 Eos # (Auto) 0.1 X10*3/uL (0.0-0.4) 01/15/23 03:04 Baso # (Auto) 0.0 X10*3/uL (0.0-0.2) 01/15/23 03:04 Abs Immat Gran (auto) 0.04 X10*3/uL (0.00-0.03) H 01/15/23 03:04 Absolute Neuts (auto) 10.2 x10*3/uL (2.0-8.3) H 01/15/23 03:04 Absolute Nucleated RBC 0.000 X10*3/uL (0.0-0.012) 01/15/23 03:04 Nucleated RBC % (auto) 0.0 /100WBC (0.0-0.2) 01/15/23 03:04 ESR 3 MM/HR (0-15) 01/15/23 03:04 Sodium 140 mmol/L (135-145) 01/15/23 03:04 Potassium 4.6 mmol/L (3.3-5.1) 01/15/23 03:04 Chloride 106 mmol/L (96-108) 01/15/23 03:04 Carbon Dioxide 24 mmol/L (22-29) 01/15/23 03:04 Anion Gap 15 (12-20) 01/15/23 03:04 BUN 14 mg/dL (9-16) 01/15/23 03:04 Creatinine 0.86 mg/dL (0.5-1.4) 01/15/23 03:04 Estim Creat Clear Calc 107.0 01/15/23 03:04 Estimated GFR > 60 01/15/23 03:04 Random Glucose 108 mg/dL (60-115) 01/15/23 03:04 Calcium 9.6 mg/dL (8.4-10.2) 01/15/23 03:04 C-Reactive Protein 0.92 mg/dL (< or = 0.50) H 01/15/23 03:04 Lipase 23 U/L (8-78) 01/15/23 03:04 Urine Color Yellow 01/15/23 09:38 Urine Appearance Clear 01/15/23 09:38 Urine pH 6.5 (5.0-9.0) 01/15/23 09:38 Ur Specific [place] >= 1.030 (1.005-1.025) H 01/15/23 09:38 Urine Protein Negative mg/dL (Neg-Trace) 01/15/23 09:38 Urine Glucose (UA) Negative mg/dL (Negative) 01/15/23 09:38 Urine Ketones Negative mg/dL (Negative) 01/15/23 09:38 Urine Blood Negative (Negative) 01/15/23 09:38 Urine Nitrite Negative (Negative) 01/15/23 09:38 Ur Leukocyte Esterase Negative (Negative) 01/15/23 09:38 COVID-19 (CHRISTINA) Negative (Negative) 01/15/23 09:38 COVID-19 Clin Com See Note 01/15/23 09:38 Impressions Abdomen/Pelvis CT 01/15/23 05:06 IMPRESSION: 1. Redemonstrated postoperative changes of the bowel. Slightly thick-walled appearance of multiple loops of small bowel which could indicate mild enteritis. No convincing evidence for bowel obstruction. 2. Borderline dilated appendix with mural prominence. Though no significant surrounding inflammation is present, early changes of appendicitis would be difficult to entirely exclude in the proper clinical setting. Assessment and Plan (1) Abdominal pain: Status: Acute He was admitted because of abdominal pain. He has had this episodes for what he describes as over a year now. He has CT scan shows this long segment of small bowel that seems to have some thickening of the wall. Otherwise, there are no associated inflammatory changes. He was referred to me because of the dilatation of the appendix without any inflammatory changes. His overall clinical picture does not suggest acute appendicitis. He has tenderness is diffuse. Furthermore, he has had this flare ups for several months. He is actually being up for Crohn's disease as well by Dr. Moscoso of GI and is being scheduled for an enteroscopy during this admission. I will follow along while he is in the hospital. His exam is otherwise benign. I have discussed the above with his construction specialist as well. Time Spent With Patient Time: Total time managing care of this patient today ____ minutes. Procedures Date of Service Date of Service: 01/15/23
[2023-01-15] MEDS: Acetaminophen 325 MG TABLET 650 MG PO (13:28)
--- NOTE | 2023-01-15 14:37 | PC.NURSE ---
Pt requesting to leave, hospitalist down to see pt. PO challenging pt per hospitalist at this time
--- NOTE | 2023-01-15 15:33 | MHC.CM.PN ---
Patient d/c'd home before being seen by case management.
--- NOTE | 2023-01-15 15:36 | P.DS_ITS ---
DS: Providers Provider Date of Service: 01/15/23 Date of admission: 01/15/23 06:25 Primary care physician: Criselda Tejada MD Consults: 01/15/23 06:27 Consult to Gastroenterology Routine Consulting Provider: Luda Moscoso Reason for consultation: abdominal pain. ?crohns 01/15/23 10:39 Consult to General Surgery Routine Consulting Provider: Jaylen London Reason for consultation: Patient preference. hx Hirschsprung with abd pain and diarrhea. DS: Diagnosis Discharge Diagnosis (1) Abdominal pain: Status: Acute DS: Summary Hospital Course Hospital Course: Admission note HPI This is a 22-year-old male with pertinent history of Hirschsprung disease status post colostomy, Crohn's disease who presents to the emergency department for evaluation of abdominal discomfort.? Patient states he started having generalized abdominal discomfort about 24 hours prior to presentation.? He was seen by Dr. Moscoso race board attendant earlier in the day with plans for capsule endoscopy.? Patient stated that his abdominal discomfort got worse and he had multiple episodes of nausea, non bloody emesis and diarrhea and hence he decided to present to the ER.? Patient states he has had multiple flare-ups and has had generalized abdominal discomfort with fullness on and off for about a year.? Also has had gastroesophageal reflux disease.? He denies fever, chills, chest discomfort, palpitations, shortness of breath, changes in urinary habits In the emergency department, imaging with thick-walled appearance of small bowel indicating enteritis. Hospital course The patient was admitted for monitoring of abdominal pain. CT scan of the abdomen was done showing no acute findings. Evaluated by surgery team who recommended no intervention at this point with no evidence of appendicitis. Seen by race board attendant who plan to do endoscopy but the patient prefers to go home and follow-up as outpatient for capsule endoscopy. he was able to tolerate diet. Advance your diet slowly as tolerated To follow-up with Gastroenterology as outpatient for capsule endoscopy Time Spent with Patient Time attestation: Total time managing care of this patient today ____ minutes. Discharge coordination time: Less than 30 minutes Quality: Safe Use of Opioids Does Pt have an Active Cancer Diagnosis on the Problem List?: No Quality: Stroke Does the patient have a stroke diagnosis?: No Physical Exam Vital Signs: Vital Signs: Last Vital Signs Temp 98.1 F 01/15/23 02:37 Pulse 71 01/15/23 11:42 Resp 14 01/15/23 11:42 BP 110/62 01/15/23 11:42 Pulse Ox 97 01/15/23 11:42 O2 Del Method 01/15/23 11:42 BMI result Body Mass Index 20.3 Const: Other: Constitutional : Awake, interactive, not in distress Neck : Normal inspection, Supple Cardiovascular : RRR, no JVP, no lower extremity edema Respiratory : good bilateral air entry, no crackles, wheezes or rhonchi Gastrointestinal: soft, lax, Normal bowel sounds, Non tender Skin : Warm, Dry Neurological : Alert & oriented x3, No focal deficit , CN 2-12 within normal DS: Data Data Completed and Pending Labs on day of discharge: Laboratory Results - last 24 hr 01/15/23 01/15/23 01/15/23 03:04 03:04 03:04 WBC 12.5 H RBC 5.24 Hgb 15.8 Hct 45.4 MCV 86.6 MCH 30.2 MCHC 34.8 RDW 11.6 Plt Count 315 MPV 10.2 Immature Gran % (Auto) 0.3 Neut % (Auto) 81.3 H Lymph % (Auto) 9.0 L [place] % (Auto) 8.4 Eos % (Auto) 0.8 Baso % (Auto) 0.2 Lymph # (Auto) 1.1 L [place] # (Auto) 1.1 Eos # (Auto) 0.1 Baso # (Auto) 0.0 Abs Immat Gran (auto) 0.04 H Absolute Neuts (auto) 10.2 H Absolute Nucleated RBC 0.000 Nucleated RBC % (auto) 0.0 ESR 3 Sodium 140 Potassium 4.6 Chloride 106 Carbon Dioxide 24 Anion Gap 15 BUN 14 Creatinine 0.86 Estim Creat Clear Calc 107.0 Estimated GFR > 60 Random Glucose 108 Calcium 9.6 C-Reactive Protein 0.92 H Lipase 23 Urine Color Urine Appearance Urine pH Ur Specific [place] Urine Protein Urine Glucose (UA) Urine Ketones Urine Blood Urine Nitrite Ur Leukocyte Esterase COVID-19 (CHRISTINA) COVID-19 Clin Com 01/15/23 01/15/23 09:38 09:38 WBC RBC Hgb Hct MCV MCH MCHC RDW Plt Count MPV Immature Gran % (Auto) Neut % (Auto) Lymph % (Auto) [place] % (Auto) Eos % (Auto) Baso % (Auto) Lymph # (Auto) [place] # (Auto) Eos # (Auto) Baso # (Auto) Abs Immat Gran (auto) Absolute Neuts (auto) Absolute Nucleated RBC Nucleated RBC % (auto) ESR Sodium Potassium Chloride Carbon Dioxide Anion Gap BUN Creatinine Estim Creat Clear Calc Estimated GFR Random Glucose Calcium C-Reactive Protein Lipase Urine Color Yellow Urine Appearance Clear Urine pH 6.5 Ur Specific [place] >= 1.030 H Urine Protein Negative Urine Glucose (UA) Negative Urine Ketones Negative Urine Blood Negative Urine Nitrite Negative Ur Leukocyte Esterase Negative COVID-19 (CHRISTINA) Negative COVID-19 Clin Com See Note Imaging CT scan - abdomen: Radiologist's impression: ITS Impressions Abdomen/Pelvis CT 01/15/23 05:06 IMPRESSION: 1. Redemonstrated postoperative changes of the bowel. Slightly thick-walled appearance of multiple loops of small bowel which could indicate mild enteritis. No convincing evidence for bowel obstruction. 2. Borderline dilated appendix with mural prominence. Though no significant surrounding inflammation is present, early changes of appendicitis would be difficult to entirely exclude in the proper clinical setting. Discharge Plan Discharge Anticipated Discharge Date/Time: 01/15/23 15:25 Patient Disposition: Home, Self-Care Discharge Diagnosis: abdominal pain Referrals: Criselda Tejada MD [Primary Care Provider] - 1 Week Discharge Medications: Continued hyoscyamine sulfate 0.125 mg tablet,disintegrating 0.125 mg PO BID-QID PRN (Reason: dyspepsia) Qty: 30 0RF omeprazole 40 mg capsule,delayed release(DR/EC) 40 mg PO DAILY Qty: 90 2RF Discharge Orders: Discharge Order (Routine); Ordered 01/15/23 Ordered By: Avelina Sahu Diet: Advance to usual diet Activity on Discharge: As tolerated Stand Alone Forms: Patient Portal Discharge page Care Plan Goals: Read below Health Concerns: Read below Plan of Treatment: Read below Assessment: You were admitted to the hospital for evaluation of abdominal pain. Seen by surgery and Gastroenterology team who recommended endoscopy but who preferred to do it as outpatient. Advance your diet slowly as tolerated To follow-up with Gastroenterology as outpatient for capsule endoscopy
== END 2023-01-15 16:09 | disposition home or self-care (01) ==
LOC: HO.ED 06:54 → HO.EDOVER 07:40
PROVIDERS: Student in an Organized Health Care Education/Training Program; Admitting Provider Student in an Organized Health Care Education/Training Program; Emergency Provider Internal Medicine; PCP Family Medicine; Visit Provider Student in an Organized Health Care Education/Training Program
DX: R10.9 Unspecified abdominal pain (principal); K50.90 Crohn's disease, unspecified, without complications; Z20.822 Contact with and (suspected) exposure to COVID-19
CPT/HCPCS: 36415; 74177; 80048; 81003; 83690; 85025; 85652; 86140; 87635; 96361; 96374; 96375; 99221; 99285; J2270; J2405; J2930; Q9967

== ENCOUNTER → 2023-02-15 08:33 | Outpatient (BNVA) | payer MEDICAID, SELFPAY | PROVIDERS: PCP Family Medicine; Visit Provider Internal Medicine Gastroenterology | DX: R10.9 Unspecified abdominal pain (principal) | CPT/HCPCS: 91110 ==

== ENCOUNTER 2023-07-30 15:06 | Outpatient (REF) | payer MEDICAID, SELFPAY ==
[2023-07-30 17:29] LABS: MANUAL DIFF FLAG NO
[2023-07-30 17:36] LABS: Basophils Percent Auto 0.3 % (0-2); Eosinophils Percent Auto 0.6 % (0-4); Hematocrit 44.6 % (42.0-52.0); Hemoglobin 14.9 g/dl (14.0-18.0); Imm Gran Abs Auto 0.01 X10*3/uL (0.00-0.03); Imm Gran Pct Auto 0.2 % (0.0-0.4); Lymphocytes Absolute Auto 1.6 X10*3/uL (1.2-4.9); Lymphocytes Percent Auto 24.9 % (20-40); Mean Corpuscular HGB Conc 33.4 g/dl (31.0-36.0); Mean Corpuscular Hemoglobin 30.1 pg (27.0-33.0); Mean Corpuscular Volume 90.1 fL (80.0-98.0); Mean Platelet Volume 10.6 fL (9.4-12.4); Monocytes Absolute Auto 0.6 X10*3/uL (0.1-1.2); Neutrophils Absolute Auto 4.1 x10*3/uL (2.0-8.3); Platelet Count 382 X10*3/uL (160-400); Red Blood Count 4.95 X10*6/uL (4.60-5.80); Red Cell Distribution Width 11.8 % (11.0-16.0); White Blood Count 6.4 X10*3/uL (4.8-10.8)
[2023-07-30 17:58] LABS: Alanine Aminotransferase 10 U/L (0-40); Albumin Level 4.6 g/dL (3.5-5.0); Alkaline Phosphatase 61 U/L (39-117); Anion Gap 11 (12-20); Aspartate Amino Transferase 13 U/L (5-37); Bilirubin Total 0.4 mg/dL (0.0-1.0); Blood Urea Nitrogen 13 mg/dL (9-16); C Reactive Protein 0.13 mg/dL (< or = 0.50); Calcium 9.9 mg/dL (8.4-10.2); Carbon Dioxide 28 mmol/L (22-29); Chloride 104 mmol/L (96-108); Cholesterol 148 mg/dL (<200); Estimated Glomerular Filt Rate > 60; Glucose Random 75 mg/dL (60-115); HDL Cholesterol 43 mg/dL (>40); LDL Cholesterol Calculated 82 mg/dL (<100); Sodium 139 mmol/L (135-145); Total Protein 8.2 g/dL (6.5-8.0); Triglycerides 116 mg/dL (<150)
[2023-07-30 18:06] LABS: TSH reflex Free T4 1.45 uIU/mL (0.32-4.0)
[2023-07-30 19:55] LABS: Erythrocyte Sedimentation Rate 3 MM/HR (0-15)
[2023-07-30 20:01] LABS: Rheumatoid Factor < 13.0 IU/mL (<15.0)
[2023-07-31 04:04] LABS: ~HepC Num1 0.26 S/CO (0.00-0.79); ~Hepatitis C Antibody Nonreactive (Nonreactive)
[2023-07-31 05:19] LABS: Estimated Average Glucose 91 mg/dL; Hemoglobin A1c % 4.8 % (<6.0)
[2023-08-01 12:08] LABS: Immunoglobulin G 1611 mg/dL (600-1640)
[2023-08-01 15:43] LABS: Cyclic Citrullinated Peptide <16 UNITS
[2023-08-05 08:45] LABS: Anti Nuclear Antibody Screen NEGATIVE (NEGATIVE)
== END 2023-07-30 15:07 | disposition home or self-care (01) ==
LOC: HO.CHCLDS 15:06
PROVIDERS: Visit Provider Internal Medicine
DX: R53.83 Other fatigue (principal)
CPT/HCPCS: 36415; 80053; 80061; 82784; 83036; 84443; 85025; 85652; 86038; 86140; 86200; 86431; 86803

== ENCOUNTER 2023-10-29 15:02 | Outpatient (REF) | payer MEDICAID, SELFPAY ==
[2023-11-01 09:08] LABS: TS Negative Control Passed; TS Panel A 0; TS Panel B 0; TS Positive Control Passed; TSpotTB Negative (Negative)
== END 2023-10-29 15:03 | disposition home or self-care (01) ==
LOC: HO.CHCLDS 15:02
PROVIDERS: Visit Provider Internal Medicine
DX: Z00.00 Encounter for general adult medical examination without abnormal findings (principal); Z11.1 Encounter for screening for respiratory tuberculosis
CPT/HCPCS: 36415; 86481

== ENCOUNTER → 2024-10-19 11:22 | Outpatient (AMB) | payer MEDICAID, SELFPAY ==
--- NOTE | 2024-10-19 11:22 | MHC.OFFVIS ---
Intake Visit Reasons: regarding FMLA Intake Note: Obed presents as a telehealth today regarding updating his FMLA. Pododermatologist Required: No Allergies mold Allergy (Mild, Verified 10/19/24 11:23) Unknown Seasonal Allergies Allergy (Mild, Verified 10/19/24 11:23) Unknown HPI HPI regarding FMLA: Details: 24-year-old male with history of Hirschsprung disease status post colostomy, who I am seeing for f/u for abdominal pain. RECAP: He had been seen in the GI office due to abdominal pain and abn imaging of small bowel with plan for o/p caspule. Overnight however he had diffuse cramping and stabbing abdominal pain 10/10 in different areas of the abdomen as well as feeling of nausea with non bloody diarrhea and nausea with non bloody emesis. Sx can be worse with food, no relieving factors. Labs with mild elevated crp and WCC, nml LFT, Imaging with small bowel changes and possible dilated appendix He got a dose of steroids and opiate analgesia and is feeling better. EGD: 2021 possible barretts LA grade A erosive esophagitis I did a capsule endoscopy which was normal GES also normal 2022 INTERIM: He has been cramoing pains and flare ups ongoing 2-3 times a month for 3d in a row --can be random he cant think when gets attacks he can have diarrhea, no blood in stools he has no refills on PPI and levsin- req as they do help his sx he needs FMLA paper work completed he had imaging last month for hemiparesis, thought to be due to migraine EXAM: good color, seems relaxed PLAN: 1/ fill out FMLA 2/ Mr enterogram 3/ refill on PPI and levsin 4/ [facility]et [facility] Medical History Asthma Hx of influenza Hirschsprung's disease Acid reflux Surgical History Hx of abdominal surgery History of dental mormonism Social History Alcohol intake: never Patient Tobacco Use Status: Never used Tobacco Telehealth Telehealth Telehealth Platform: [facility] Location of provider rendering services: practice address Location of patient: address on file Patient Identification confirmed using: Name, : Yes Telehealth method: video Patient verbally consented to treatment: Yes Patient verbally consented to billing insurance company: Yes Patient informed of any privacy concerns related to visit: Yes Minutes spent on Phone/Video with Pt.: 14 Assessment & Plan Assessment & Plan (1) Epigastric abdominal pain: Code(s): R10.13 - Epigastric pain Category: Medical Plan: see above (2) Abdominal swelling, LLQ: Code(s): R19.04 - Left lower quadrant abdominal swelling, mass and lump Category: Medical Plan: see above Orders: Orders C Reactive Protein Today R10.13 - Epigastric pain, R19.04 - Left lower quadrant abdominal swelling, mass and lump MR pelvis wo/w con Today R10.13 - Epigastric pain, R19.04 - Left lower quadrant abdominal swelling, mass and lump Complete Blood Count Auto Diff Today R10.13 - Epigastric pain, R19.04 - Left lower quadrant abdominal swelling, mass and lump Comprehensive Met. Panel Today K75.81 - Nonalcoholic steatohepatitis (MERINO), R10.13 - Epigastric pain, R19.04 - Left lower quadrant abdominal swelling, mass and lump MR abdomen wo/w con Today R10.13 - Epigastric pain, R19.04 - Left lower quadrant abdominal swelling, mass and lump Medications: Refilled omeprazole 40 mg PO DAILY 90 caps 2RF hyoscyamine sulfate 0.125 mg PO BID-QID PRN 30 tabs 0RF dyspepsia Coding Level of Care Code Tele Est Pt Level 4 (47986) Diagnoses Epigastric abdominal pain R10.13 Abdominal swelling, LLQ R19.04
== END ==
LOC: HO.HGI 11:22
PROVIDERS: PCP Family Medicine; Visit Provider Internal Medicine Gastroenterology
DX: R10.13 Epigastric pain (principal); R19.04 Left lower quadrant abdominal swelling, mass and lump
CPT/HCPCS: 99214

== ENCOUNTER 2024-11-06 08:48 | Outpatient (REF) | payer MEDICAID, SELFPAY ==
[2024-11-06 09:06] LABS: MANUAL DIFF FLAG NO
[2024-11-06 10:05] LABS: Basophils Percent Auto 0.7 % (0-2); Eosinophils Absolute Auto 0.3 X10*3/uL (0.0-0.4); Eosinophils Percent Auto 4.7 % (0-4); Hematocrit 43.4 % (42.0-52.0); Hemoglobin 14.8 g/dl (14.0-18.0); Imm Gran Abs Auto 0.01 X10*3/uL (0.00-0.03); Imm Gran Pct Auto 0.2 % (0.0-0.4); Lymphocytes Absolute Auto 1.5 X10*3/uL (1.2-4.9); Lymphocytes Percent Auto 25.4 % (20-40); Mean Corpuscular HGB Conc 34.1 g/dl (31.0-36.0); Mean Corpuscular Hemoglobin 30.3 pg (27.0-33.0); Mean Corpuscular Volume 88.9 fL (80.0-98.0); Mean Platelet Volume 10.5 fL (9.4-12.4); Monocytes Absolute Auto 0.5 X10*3/uL (0.1-1.2); Neutrophils Absolute Auto 3.6 x10*3/uL (2.0-8.3); Platelet Count 299 X10*3/uL (160-400); Red Blood Count 4.88 X10*6/uL (4.60-5.80); Red Cell Distribution Width 11.9 % (11.0-16.0)
[2024-11-06 11:25] LABS: Alanine Aminotransferase 15 U/L (0-40); Albumin Level 4.2 g/dL (3.5-5.0); Alkaline Phosphatase 52 U/L (39-117); Anion Gap 11 (12-20); Aspartate Amino Transferase 17 U/L (5-37); Bilirubin Total 0.5 mg/dL (0.0-1.0); Blood Urea Nitrogen 13 mg/dL (9-16); C Reactive Protein < 0.10 mg/dL (< or = 0.50); Carbon Dioxide 27 mmol/L (22-29); Chloride 106 mmol/L (96-108); Estimated Glomerular Filt Rate > 60; Glucose Random 84 mg/dL (60-115); Potassium 3.8 mmol/L (3.3-5.1); Sodium 140 mmol/L (135-145); Total Protein 7.6 g/dL (6.5-8.0)
[2024-11-06] MEDS: Sorbitol/Mannit/Xanth Imaging 500 ML LIQUID 1500 ML PO (11:30)
[2024-11-06] MEDS: gadobutroL 7.5 ML VIAL IVPUSH (11:31)
== END 2024-11-06 08:49 | disposition home or self-care (01) ==
LOC: HO.MRI 08:48
PROVIDERS: PCP Family Medicine; Visit Provider Internal Medicine Gastroenterology
DX: R19.04 Left lower quadrant abdominal swelling, mass and lump (principal); R10.13 Epigastric pain; K75.81 Nonalcoholic steatohepatitis (NASH)
CPT/HCPCS: 36415; 72197; 74183; 80053; 85025; 86140; A9585

== ENCOUNTER 2025-06-09 08:55 | Outpatient (REF) | payer MEDICAID, SELFPAY ==
[2025-06-09 09:06] LABS: MANUAL DIFF FLAG NO
--- OUTSIDE RECORDS SUMMARY | 2025-06-09 09:22 | XMS_ITS | Clinical Summary ---
Author Organization [employer] Address [address] [place] [address] 7t [place] [address] Care Team Providers Care Escrow Representative Name Role Phone Criselda Tejada MD Primary Care Provider [phone] Allergies Active Allergy Reactions Criticality Noted Date Comments Dust Mite Extract Runny nose 04/06/2024 Gramineae Pollens Runny nose,Shortness of breath High 04/06/2024 Mixed Ragweed 04/06/2024 Molds & Smuts 04/06/2024 Pineapple 04/06/2024 Medications hyoscyamine (Anaspaz) 0.125 MG disintegrating tablet TAKE 1 TAB TO DISSOLVE UUNDER TONGUE 2-4 TIMES A DAY NEEDED FOR DYSPEPSIA 3 Active omeprazole (PriLOSEC) [address] capsule Take 40 mg by mouth in the morning. 3 Active montelukast (Singulair) 10 MG tablet Take 1 tablet (10 mg) by mouth Once per day. 90 tablet 1 4 Active fexofenadine (Catherine) 180 MG tablet Take 1 tablet (180 mg) by mouth if needed each day (Allergies). 90 tablet 1 4 Active ProAir HFA 108 (90 Base) MCG/ACT inhaler Inhale 2 puffs every 4 (four) hours if needed for wheezing. 18 g 5 4 Active fluticasone (Flonase) 50 MCG/ACT nasal spray Administer 1 spray into each nostril 2 times daily. Shake gently. Before first use, prime pump. After use, clean tip and replace cap. 48 mL 5 4 Active Mometasone Furoate (Asmanex HFA) 100 MCG/ACT aerosol Inhale 2 puffs 2 times daily. 13 g 2 4 Active Active Problems Problem Noted Date Diagnosed Date Annual physical exam 06/07/2025 Assessment & Plan (06/07/2025 3:15 PM EDT): 24 y.o. male here for annual physical examination Reviewed BMI and BP with patient. Nutritional recommendations: Recommended to decrease soda and sugary beverage consumption. Recommended at least 20 g per meal of protein to assist with satiety. Exercise recommendations: Recommended at least 150 min/week of moderate intensity exercise. BH screen done and reviewed Care Gaps reviewed IZ reviewed and discussed w/ patient Updated/reviewed PMH, Surghx, Family Hx & Social Hx Moderate persistent asthma 04/06/2024 Assessment & Plan (07/05/2024 2:21 AM EDT): Discussed current medications and refills as needed. Pt was advised to continue his meds as this prevents flare-ups. Pt was switched from Fluticasone Furoate 100 MCG to Mometasone Furoate 100 MCG. If proven to be ineffective next season then will adjust then. Relevant Medications: Fluticasone (Flonase) 50 MCG/ACT nasal spray Mometasone Furoate (Asmanex HFA) 100 MCG/ACT aerosol ProAir HFA 108 (90 Base) MCG/ACT inhaler Assessment & Plan (04/06/2024 4:27 PM EDT): Discussed current medications and refills as needed. Prescribe Arnuity inhaler, Singulair, and Catherine for asthma symptoms. F/u in 8 weeks. 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 Did request a letter for support of his FLMA, generated and provided to patient. Assessment & Plan (11/18/2022 2:03 PM EST): -Current flare x 2-3 days with symptoms including nausea, abdominal fullness, discomfort, and decreased appetite -Pt reports symptom improved with OTC miralax, and was able to normal BM -No acute abdomen on exam -Note generated for work -Pt encouraged to follow up with GI specialist for any persistence or worsening of symptoms -ED precautions reviewed Resolved Problems Problem Noted Date Diagnosed Date Resolved Date Multiple joint pain 07/30/2023 04/06/20 24 Assessment & Plan (07/30/2023 2:41 PM EDT): Will order sle/ra testing, he refers has family hx of sle, no rash described, no current/active joint swelling. Other fatigue 07/30/2023 04/06/2024 Assessment & Plan (07/30/2023 2:42 PM EDT): Will order blood work to rule out organic causes, I believe is mostly related to exhaustion. Will notify results Physical exam 07/30/2023 04/06/2024 Assessment & Plan (07/30/2023 2:45 PM EDT): Physical examination was unremarkable, he complains of chronic fatigue, will order labs to rule out organic causes Hereditary essential tremor 01/13/2018 07/03/2024 Acne 01/13/2018 07/03/2024 Heart murmur 10/07/2013 04/06/2024 Encounters Date Type Department Care Team Description 06/02/2025 Telephone [facility] MED & PEDS [address] [place] [address] Criselda Tejada MD 05/28/2025 8:45 AM EDT Office Visit [facility] MED & PEDS [address] [place] [address] Criselda Tejada MD Suspected exposure to mold (Primary Dx); Annual physical exam 05/28/2025 Travel 05/20/2025 Patient Outreach [facility] MEDICINE [address] [place] [address] Criselda Tejada MD Pre-visit Planning (SDOH screening negative and Tobacco screening negative) from Last 3 Months Immunizations Immunization Administration Dates Next Due DTaP 04/21/2003, 0,04/13/1999,01/24,1998 Hep A, ped/adol, 2 dose 10/19/2015,11/15/2014 Hep B, Adolescent or Pediatric 8,03/18/1999,01/24/1999,11/21 Hib ([facility]) 03/18/2000,199 9,01/24/1999,12/01 IPV 04/21/2003,199 9,01/24/1999,12/01 Influenza injectable quadriv alent IIV4 with preservative 10/01/2019,01/13/2018 Influenza injectable quadriv alent preservative free 07/30/2023,09/03/2018,12/24/2016,10/19,11/15/2014 Influenza, IIV3, injectable 10/20/2010,1 12/05/2007,11/05/2007,11/22,09/03/2003,10/17/2001 Influenza, Split (incl. steven fied surface antigen) 10/07/2013 MMR 04/21/2003,11/06/1999 Meningococcal MCV4P ACYW-135 12/24/2016,01/16/20 12 Pneumococcal Conjugate PCV 20 07/03/2024 TD (adult), 2 Lf tetanus tox oid, preservative free, adsorbed 09/27/2022 Tdap 01/16/2012 Varicella 08/02/2008,03/18/2000 Family History Medical History Relation Name Comments Asthma Father Diabetes Mother MENG disease Mother Hypertension Mother Heart disease Paternal Grandmother Hypertension Paternal Grandmother Stroke Paternal Grandmother Relation Name Status Comments Father Mother Paternal Grandmother Social History Tobacco Use Types Packs/Day Years Used Date Smoking Tobacco: Never Smokeless Tobacco: Never Tobacco Cessation:Counseling Given: Not Answered Alcohol Use Standard Drinks/Week Comments Never 0 (1 standard drink = 0.6 oz pur e alcohol) Depression Answer Date Recorded Patient Health Questionnaire-9 Score 0 05/28/2025 Patient Health Questionnaire-9 Score 0 05/28/2025 Last PHQ-9: Questionnaire Data Not on file 0 05/28/2025 Housing Stability Answer Date Recorded What is your housing situation today? I have bernadine regan 05/20/[address] you li ve. Do you have problems with any of the following? None of the above 05/20/2025 Food Insecurity Answer Date Recorded Within the past 12 months, y ou worried that your food would run out before you got money to buy more: Never True 05/20/2025 Within the past 12 months,th e food you bought just didn't last and you didn't have enough money to get more: Never True 01/2025 Transportation Answer Date Recorded In the past 12 months, has l ack of transportation kept you from medical appts, meetings, work or from getting things needed for daily living? No 05/20/2025 Utilities Answer Date Recorded In the past 12 months, has t he electric, gas, oil or water company threatened to shut off services in your home? No 05/20/2025 Depression Answer Date Recorded Patient Health Questionnaire-2 Score 0 05/28/2025 Internet Access Answer Date Recorded Internet Access Q1 Yes 05/20/2025 Internet Access Q2 Not on file 05/20/2025 Sex and Gender Information Value Date Recorded Sex Assigned at Male 09/17/2022 10:16 AM EDT Legal Sex Male 10:16 AM EDT Gender Identity Male 09/17/2022 10:16 AM EDT Sexual Orientation Straight 09/17/2022 10 :16 AM EDT Last Filed Vital Signs Vital Sign Reading Time Taken Comments Blood Pressure 110/72 05/28/2025 8:57 AM EDT Pulse 80 05/28/2025 8:57 AM EDT Temperature 36.8 C (98.2 F) 05/28/2025 8:57 AM EDT Respiratory Rate 20 05/28/2025 8:57 AM EDT Oxygen Saturation 98% 05/28/2025 8:57 AM EDT Inhaled Oxygen Concentration - - Weight 58.1 kg (128 lb) 05/28/2025 8:57 AM EDT Height 167 cm (5' 5.75 ) 05/28/2025 8:57 AM EDT Body Mass Index 20.82 05/28/2025 8:57 AM EDT Plan of Treatment Health Maintenance Due Date Last Done Comments Family Planning (PISQ) 2013 COVID-19 Vaccine ( season) 2025 03/24/2022, 06/23/2021 Postponed from 07/19/2024 (Supply/Drug Shortage) Influenza Vaccine (#1) 2025 , 10/01/2019, 09/03/2018, Additional history exists SDOH Screening 05/20/2026 05/20/2025 Alcohol/Substance Use Screening 05/28/2026 05/28/2025 Depression Screening 05/28/2026 05/28/2025, 05/28/20 25 Disability Screening 05/28/2026 05/28/2025 Tobacco Screening 05/28/2026 05/28/2025 DTaP/Tdap/Td Vaccines (8 - Td or Tdap) 09/27/2032 09/27/2022, 01/16/2012, 04/21/2003, Additional history exists Zoster Vaccines (1 of 2) 2048 RSV Patients and Patients Aged 60 years or older (1 - 1-dose 75+ series) 2073 HIB Vaccines Completed 03/18/2000, 03/19, 01/24/1999, Additional history exists IPV Vaccines Completed 04/21/2003, 03/19, 01/24/1999, Additional history exists Hepatitis A Vaccines Completed 10/19/2015, 11/15/20 14 Meningococcal Vaccine Completed 12/24/2016, 012 Hepatitis B Vaccines Completed 05/02/2018, 03/18/1999, 01/24/1999, Additional history exists HIV Screening Completed 05/17/2021 Hepatitis C Screening Completed 07/30/2023, 021 Pneumococcal Vaccine: Pediatrics (0 to 5 Years) and At-Risk Patients (6 to 49) Years Completed 07/03/2024 HPV Vaccines Discontinued Meningococcal B Vaccine Aged Out No l onger eligible based on patient's age to complete this topic RSV under 20 months Aged Out No longe r eligible based on patient's age to complete this topic Rotavirus Vaccines Aged Out No longer eligible based on patient's age to complete this topic Procedures Procedure Name Priority Date/Time Associated Diagnosis Comments HEPATITIS C AB W/REFL TO HCV RNA, QN, PCR Routine 07/30/2023 3:21 PM EDT Other fatigue HIV 1/2 ANTIGEN/ANTIBODY, FOURTH GENERATION W/RFL Routine 05/17/2021 1:06 PM EDT from Last 3 Months or Most Recently Relevant to Health Maintenance Results * Hepatitis C Antibody with Reflex to HCV, RNA, Quantitative, Real-Time PCR (07/30/2023 3:21 PM EDT) Hepatitis C Antibody Nonreactive Nonreactive [facility] Comment:Antibodies to HCV no t detected; does not exclude early acuteHCV infection. Blood Venous blood specimen / Unknown 07/30/2023 3:21 PM EDT 07/30/2023 5:26 PM EDT Isac Avila MD LAB BLOOD ORDERABL ES Final Result [facility] [address] [place] [phone] * HIV 1/2 ANTIGEN/ANTIBODY,FOURTH GENERATION W/RFL (05/17/2021 1:06 PM EDT) HIV-1/2 ANTIGEN AND ANTIBODIES, 4TH GENERATION W/ REFLEX NON-REACT YADIRA NON-REACT YADIRA [facility] Comment: HIV-1 antigen and HIV-1/HIV-2 antibodies were not detected. There is no laboratory evidence of HIV infection. PLEASE NOTE: This information has been disclosed to you from records whose confidentiality may be protected by state law. If your state requires such protection, then the state law prohibits you from making any further disclosure of the information without the specific written consent of the person to whom it pertains, or as otherwise permitted by law. A general authorization for the release of medical or other information is NOT sufficient for this purpose. For additional information please refer to http://education.VetCompare/faq/ZVH871 (This link is being provided for informational/ educational purposes only.) The performance of this assay has not been clinically validated in patients less than 2 years old. 05/17/2021 1:06 PM EDT us Bear Juarez MD LAB BLOOD ORDERABLES Final Resul t Performing Organization Address City/State/ZIP Co nv Phone Number [facility] [address] from Last 3 Months or Most Recently Relevant to Health Maintenance Insurance [facility] C3 Care Teams Escrow Representative Relationship Specialty Start Date End Date Criselda Tejada MD [address] [place] [address] PCP - General Family Medicine 02/28/24 Luda Moscoso MD Consulting Physician Gastroenterology 04/06/24
[2025-06-09 09:43] LABS: Hematocrit 42.4 % (42.0-52.0); Hemoglobin 14.3 g/dl (14.0-18.0); Imm Gran Abs Auto 0.02 X10*3/uL (0.00-0.03); Imm Gran Pct Auto 0.3 % (0.0-0.4); Lymphocytes Absolute Auto 1.7 X10*3/uL (1.2-4.9); Mean Corpuscular HGB Conc 33.7 g/dl (31.0-36.0); Mean Corpuscular Hemoglobin 29.9 pg (27.0-33.0); Mean Corpuscular Volume 88.7 fL (80.0-98.0); NRBC Abs Auto 0.000 X10*3/uL (0.0-0.012); NRBC Pct Auto 0.0 /100WBC (0.0-0.2); Platelet Count 315 X10*3/uL (160-400); Red Blood Count 4.78 X10*6/uL (4.60-5.80); White Blood Count 6.3 X10*3/uL (4.8-10.8)
[2025-06-09 10:43] LABS: Alanine Aminotransferase 13 U/L (0-40); Albumin Level 4.4 g/dL (3.5-5.0); Alkaline Phosphatase 52 U/L (39-117); Anion Gap 9 (12-20); Aspartate Amino Transferase 15 U/L (5-37); Blood Urea Nitrogen 13 mg/dL (9-16); Calcium 9.0 mg/dL (8.4-10.2); Carbon Dioxide 29 mmol/L (22-29); Chloride 105 mmol/L (96-108); Cholesterol 140 mg/dL (<200); Estimated Glomerular Filt Rate > 60; HDL Cholesterol 46 mg/dL (>40); Potassium 3.9 mmol/L (3.3-5.1); Sodium 139 mmol/L (135-145); Total Protein 7.3 g/dL (6.5-8.0); Triglycerides 44 mg/dL (<150)
== END 2025-06-09 08:56 | disposition home or self-care (01) ==
LOC: HO.LAB 08:55
PROVIDERS: PCP Family Medicine; Visit Provider Family Medicine
DX: Z00.00 Encounter for general adult medical examination without abnormal findings (principal)
CPT/HCPCS: 36415; 80053; 80061; 85025

== ENCOUNTER 2025-07-22 14:35 | Outpatient (REF) | payer MEDICAID, SELFPAY ==
--- OUTSIDE RECORDS SUMMARY | 2025-07-22 15:50 | XMS_ITS | Encounter Summary ---
Author Organization [employer] Address [address] [place] [address] 7 [place] [address] Care Team Providers Care Branch Administrator Name Role Phone Isac Sheppard MD Primary Care Prov ider Criselda Tejada MD Primary Care Provider [phone] Isac Sheppard MD Primary Care Prov ider Criselda Tjeada MD Primary Care Provider [phone] Encounter Details Date Type Department Care Team (Latest Contact Info) Description 06/19/2021 Abstract [facility] Dental, Provider, DDS Social History Tobacco Use Types Packs/Day Years Used Date Smoking Tobacco: Never Assessed Sex and Gender Information Value Date Recorded Sex Assigned at Male 09/17/2022 10:16 AM EDT Legal Sex Male 10:16 AM EDT Gender Identity Male 09/17/2022 10:16 AM EDT Sexual Orientation Straight 09/17/2022 10 :16 AM EDT documented as of this encounter Plan of Treatment Not on file documented as of this encounter Visit Diagnoses Not on filedocumented in this encounter Care Teams Branch Administrator Relationship Specialty Start Date End Date Isac Sheppard MD [address] [place] [address] PCP - General Internal Medicine 09/29/19 11/13/22 Criselda Tejada MD [address] [place] [address] PCP - General Family Medicine 11/14/22 04/04/23 Isac Sheppard MD [address] [place] [id number] PCP - General Internal Medicine 04/05/23 02/27/24 Criselda Tejada MD [address] [place] [address] PCP - General Family Medicine 02/28/24 Luda Moscoso MD Consulting Physician Gastroenterology 04/06/24 documented as of this encounter
--- OUTSIDE RECORDS SUMMARY | 2025-07-22 15:50 | XMS_ITS | Encounter Summary ---
Author Organization [employer] Address [address] [place] [address] [address] [place] [address] Care Team Providers Care Corporate Executive Chef Name Role Phone Isac Sheppard MD Primary Care Prov ider Criselda Tejada MD Primary Care Provider [phone] Reason for Visit * Reason Onset Date Comments Immunizations 01/09/2024 Encounter Details Date Type Department Care Team ([facility] Contact Info) Description 01/09/2024 Telephone [facility] CHC MED & PEDS [address] [place] [address] Isac Sheppard MD [address] [place] [address] Immunizations Social History Tobacco Use Types Packs/Day Years Used Date Smoking Tobacco: Never Smokeless Tobacco: Never Alcohol Use Standard Drinks/Week Comments Never 0 (1 standard drink = 0.6 oz pur e alcohol) Depression Answer Date Recorded Patient Health Questionnaire-9 Score 0 07/30/2023 Housing Stability Answer Date Recorded What is your housing situation today? I have bernadine regan 09/23/[address] you li ve. Do you have problems with any of the following? None of the above 09/23/2023 Food Insecurity Answer Date Recorded Within the past 12 months, y ou worried that your food would run out before you got money to buy more: Never True 09/23/2023 Within the past 12 months,th e food you bought just didn't last and you didn't have enough money to get more: Never True 04/2023 Transportation Answer Date Recorded In the past 12 months, has l ack of transportation kept you from medical appts, meetings, work or from getting things needed for daily living? No 09/23/2023 Utilities Answer Date Recorded In the past 12 months, has t he electric, gas, oil or water company threatened to shut off services in your home? No 09/23/2023 Depression Answer Date Recorded Patient Health Questionnaire-2 Score 0 07/30/2023 Sex and Gender Information Value Date Recorded Sex Assigned at Male 09/17/2022 10:16 AM EDT Legal Sex Male 10:16 AM EDT Gender Identity Male 09/17/2022 10:16 AM EDT Sexual Orientation Straight 09/17/2022 10 :16 AM EDT documented as of this encounter Miscellaneous Notes * Telephone Encounter - Wing Allan RN - 01/10/2024 10:34 AM EST T/c to regarding vaccination question about tetanus and pertussis. States his school does not accept the tetanus booster he had in 2021. Reached out to Reyes Nichole at [phone] for clarification. Unable to reach person, left message to call back. Informed pt that we would call him back with a status update about situation. Pt verbalizes understanding and accepts plan. * Telephone Encounter - Rolanda Almonte - 01/09/2024 11:01 AM EST Tc from pt requesting a call back to discuss immunization. States may needs couple injections . documented in this encounter Plan of Treatment Not on file documented as of this encounter Visit Diagnoses Not on filedocumented in this encounter Additional Health Concerns Assessment Noted Time PHQ-9 Depression Total Score: 0 07/30/20 23 1:58 PM EDT documented as of this encounter Care Teams Corporate Executive Chef Relationship Specialty Start Date End Date Isac Sheppard MD [address] [place] [address] PCP - General Internal Medicine 04/05/23 02/27/24 Criselda Tejada MD [address] [place] [address] PCP - General Family Medicine 02/28/24 Luda Moscoso MD Consulting Physician Gastroenterology 04/06/24 documented as of this encounter
--- OUTSIDE RECORDS SUMMARY | 2025-07-22 15:50 | XMS_ITS | Encounter Summary ---
Author Organization [employer] Address [address] [place] [address] [place] [address] Care Team Providers Care Senior Java Software Engineer Name Role Phone Isac Sheppard MD Primary Care Prov ider Criselda Bailey MD Primary Care Provider [phone] Isac Sheppard MD Primary Care Prov ider Criselda Bailey MD Primary Care Provider [phone] Reason for Visit * Reason Onset Date Comments tranfer pt appt 10/26/2022 Encounter Details Date Type Department Care Team ([facility] st Contact Info) Description 10/26/2022 Telephone [facility] CHC MED & PEDS [address] [place], [place] [phone] Isac Sheppard MD [address] [place], [place] [phone] tranfer pt appt Social History Tobacco Use Types Packs/Day Years Used Date Smoking Tobacco: Never Assessed Sex and Gender Information Value Date Recorded Sex Assigned at Male 09/17/2022 10:16 AM EDT Legal Sex Male 10:16 AM EDT Gender Identity Male 09/17/2022 10:16 AM EDT Sexual Orientation Straight 09/17/2022 10 :16 AM EDT documented as of this encounter Miscellaneous Notes * Telephone Encounter - Saadia Davenport - 01/15/2024 2:15 PM EST Tc from pt requesting status on switch of provider. * Telephone Encounter - Rolanda Almonte - 10/26/2022 2:47 PM EST Tc from pt requesting to schedule his TP appt with dr bailey . documented in this encounter Plan of Treatment Not on file documented as of this encounter Visit Diagnoses Not on filedocumented in this encounter Care Teams Senior Java Software Engineer Relationship Specialty Start Date End Date Isac Sheppard MD [address] [place] [address] PCP - General Internal Medicine 09/29/19 11/13/22 Criselda Bailey MD [address] [place] [address] PCP - General Family Medicine 11/14/22 04/04/23 Isac Sheppard MD [address] [place] [address] PCP - General Internal Medicine 04/05/23 02/27/24 Criselda Bailey MD [address] [place] [address] PCP - General Family Medicine 02/28/24 Luda Moscoso MD Consulting Physician Gastroenterology 04/06/24 documented as of this encounter
--- OUTSIDE RECORDS SUMMARY | 2025-07-22 15:50 | XMS_ITS | Encounter Summary ---
Author Organization [email or web address] Address [address] [place] [address] [address]t [place] [address] Care Team Providers Care Solar Energy Consultant And Designer Name Role Phone Criselda Tejada MD Primary Care Provider [phone] Isac Sheppard MD Primary Care Prov ider Criselda Tejada MD Primary Care Provider [phone] Reason for Visit * Reason Onset Date Comments triage 11/16/2022 Encounter Details Date Type Department Care Team ([facility] Contact Info) Description 11/16/2022 Telephone [facility] CHC MED & PEDS [address] [place] [address] Criselda Tejada MD [address] [place], [place] [phone] triage Social History Tobacco Use Types Packs/Day Years Used Date Smoking Tobacco: Never Smokeless Tobacco: Never Alcohol Use Standard Drinks/Week Comments Never 0 (1 standard drink = 0.6 oz pur e alcohol) Sex and Gender Information Value Date Recorded Sex Assigned at Male 09/17/2022 10:16 AM EDT Legal Sex Male 10:16 AM EDT Gender Identity Male 09/17/2022 10:16 AM EDT Sexual Orientation Straight 09/17/2022 10 :16 AM EDT COVID-19 Exposure Response Date Recorded In the last 10 days, have yo u been in contact with someone who was confirmed or suspected to have Coronavirus/COVID-19? No / Unsure 11/16/2022 12:01 PM EST documented as of this encounter Miscellaneous Notes * Telephone Encounter - Helen Miranda RN - 11/16/2022 10:48 AM EST Triage call Pt reports Hirschsprung's disease, has flared up for the last 2 days. Pt has had loose stools 3-4/day, bloating and abdominal discomfort. Pt is eating poorly in response to this but, drinking adequate liquids. Pt has started to take miralax as this worked well when taken before. Pt is neg for fever . Pt is requesting a note for work. Pt is advised to be seen in [facility] today for note and Pt agreed with disposition. Home care reviewed. Protocol Used: Diarrhea (Adult) Protocol-Based Disposition: See in Office or Video Visit Today Positive Triage Question: * Abdominal pain (Exception: Pain clears completely with each passage of diarrhea stool.) * All higher-acuity triage questions were negative Care Advice Discussed: * Reassurance and Education - Diarrhea * Fluid Therapy During Mild to Moderate Diarrhea * Food and Nutrition During Mild to Moderate Diarrhea * Contagiousness * Expected Course * Reasons To Call Back - Signs of dehydration occur (e.g., no urine over 12 hours, very dry mouth, lightheaded, etc.) - Moderate diarrhea lasts more than 2 days - Diarrhea lasts over 7 days - You become worse * Telephone Encounter - Rolanda Almonte - 11/16/2022 9:34 AM EST Patient calling to report is having hirschsprung symptoms for the passed couple days . State has had to miss work and is also requesting a letter . Patient speaks Mosotho. Advised triage nurse will call patient back. documented in this encounter Plan of Treatment Not on file documented as of this encounter Visit Diagnoses Not on filedocumented in this encounter Care Teams Solar Energy Consultant And Designer Relationship Specialty Start Date End Date Criselda Tejada MD [address] [place] [address] PCP - General Family Medicine 11/14/22 04/04/23 Isac Sheppard MD NPI: [id number] [place] [address] PCP - General Internal Medicine 04/05/23 02/27/24 Criselda Tejada MD [address] [place] [address] PCP - General Family Medicine 02/28/24 Luda Moscoso MD Consulting Physician Gastroenterology 04/06/24 documented as of this encounter
--- OUTSIDE RECORDS SUMMARY | 2025-07-22 15:50 | XMS_ITS | Encounter Summary ---
Author Organization [employer] Address [address] [facility] 7t [place] [address] Care Team Providers Care Strategic Account Executive Name Role Phone Criselda Tejada MD Primary Care Provider [phone] Encounter Details Date Type Department Care Team (Latest Contact Info) Description 06/10/2025 Results Follow-Up [facility] [address] [place] [address] Criselda Tejada MD [address] [place] [address] CBC auto differential, Comprehensive Metabolic Panel, Lipid Panel, Standard Social History Tobacco Use Types Packs/Day Years [...] Noted Time PHQ-9 Depression Total Score: 0 05/28/20 25 8:58 AM EDT documented as of this encounter Care Teams Strategic Account Executive Relationship Specialty Start Date End Date Criselda Tejada MD [address] [place] [address] PCP - General Family Medicine 02/28/24 Luda Moscoso MD Consulting Physician Gastroenterology 04/06/24 documented as of this encounter
--- OUTSIDE RECORDS SUMMARY | 2025-07-22 15:50 | XMS_ITS | Encounter Summary ---
Author Organization [employer] Address [address] [place] [address] [address] [place] [address] Care Team Providers Care Inspector Paper Products Name Role Phone Isac Sheppard MD Primary Care Prov ider Criselda Tejada MD Primary Care Provider [phone] Isac Sheppard MD Primary Care Prov ider Criselda Tejada MD Primary Care Provider [phone] Encounter Details Date Type Department Care Team (Latest Contact Info) Description 03/31/2019 Abstract [facility] CONVERSIONS Dental, Provider, DDS Social History Tobacco [...] on filedocumented in this encounter Care Teams Inspector Paper Products Relationship Specialty Start Date End Date Isac Sheppard MD [address] [place] [address] PCP - General Internal Medicine 09/29/19 11/13/22 Criselda Tejada MD [address] [place] [address] PCP - General Family Medicine 11/14/22 04/04/23 Isac Sheppard MD [address] [place] [address] PCP - General Internal Medicine 04/05/23 02/27/24 Criselda Tejada MD [address] [place] [address] PCP - General Family Medicine 02/28/24 Luda Moscoso MD Consulting Physician Gastroenterology 04/06/24 documented as of this encounter
--- OUTSIDE RECORDS SUMMARY | 2025-07-22 15:50 | XMS_ITS | Clinical Summary ---
Author Organization [employer] Address [address] [place] [address] [address] [place] [address] Care Team Providers Care Fitness Sales Consultant Name Role Phone Criselda Tejada MD Primary Care Provider [phone] Allergies Active Allergy Reactions Criticality Noted Date Comments Dust Mite Extract Runny nose 04/06/2024 Gramineae Pollens Runny nose,Shortness of breath High 04/06/2024 Mixed Ragweed 04/06/2024 Molds & Smuts 04/06/2024 Pineapple 04/06/2024 Medications hyoscyamine (Anaspaz) 0.125 MG disintegrating tablet TAKE 1 TAB TO DISSOLVE UUNDER TONGUE 2-4 TIMES A DAY NEEDED FOR DYSPEPSIA 01/14/20 23 Active omeprazole (PriLOSEC) [address] capsule Take 40 mg by mouth in the morning. 11/30/19 23 Active montelukast (Singulair) 10 MG tablet Take 1 tablet (10 mg) by mouth Once per day. 90 tablet 1 04/06/20 24 Active fexofenadine (Catherine) 180 MG tablet Take 1 tablet (180 mg) by mouth if needed each day (Allergies). 90 tablet 1 04/06/20 24 Active ProAir HFA 108 (90 Base) MCG/ACT inhaler Inhale 2 puffs every 4 (four) hours if needed for wheezing. 18 g 5 07/03/20 24 Active fluticasone (Flonase) 50 MCG/ACT nasal spray Administer 1 spray into each nostril 2 times daily. Shake gently. Before first use, prime pump. After use, clean tip and replace cap. 48 mL 5 07/03/20 24 Active Mometasone Furoate (Asmanex HFA) 100 MCG/ACT aerosol Inhale 2 puffs 2 times daily. 13 g 2 07/03/20 24 Active ibuprofen 600 MG tabletIndications: Thumb tendonitis Take 1 tablet (600 mg) by mouth every 8 (eight) hours if needed for moderate pain or fever. 30 tablet 06/17/20 25 025 Active Problems Problem Noted Date Diagnosed Date [...] least 150 min/week of moderate intensity exercise. screen done and reviewed Care Gaps reviewed [...] Encounters Date Type Department Care Team Description 06/17/2025 4:00 PM EDT Office Visit [facility] [address] [address] Lisset Wu MD Thumb tendonitis (Primary Dx) 06/[facility] [address] [address] Lisset Wu MD Durable Medical Equipment (DME Request: Right Thumb Spica Splint) 06/17/2025 Travel 06/10/2025 Results Follow-Up [facility] [address] [place] [address] Criselda Tejada MD CBC auto differential, Comprehensive Metabolic Panel, Lipid Panel, Standard 06/02/2025 Telephone [facility] [address] [place] [address] Criselda Tejada MD 05/28/2025 8:45 AM EDT Office Visit [facility] [address] [place], [place] [phone] Criselda Tejada MD Suspected exposure to mold (Primary Dx); Annual physical exam 05/28/2025 Travel 05/20/2025 Patient Outreach [facility] [address] [place] [address] [phone] Criselda Tejada MD Pre-visit Planning (SDOH screening negative and Tobacco screening negative) from Last 3 Months Immunizations Immunization Administration Dates Next Due DTaP 04/21/2003, 0,04/13/1999,01/24,1998 Hep A, ped/adol, 2 dose 10/19/2015,11/15/2014 Hep B, Adolescent or Pediatric 8,03/18/1999,01/24/1999,11/21 Hib (HbOC) 03/18/2000, 9,01/24/1999,12/01 IPV 04/21/2003, 9,01/24/1999,12/01 Influenza injectable quadriv alent IIV4 with [...] Sign Reading Time Taken Comments Blood Pressure 126/70 06/17/2025 4:03 PM EDT Pulse 70 06/17/2025 4:03 PM EDT Temperature 36.8 C (98.2 F) 06/17/2025 4:03 PM EDT Respiratory Rate 16 06/17/2025 4:03 PM EDT Oxygen Saturation 100% 06/17/2025 4:03 PM EDT Inhaled Oxygen Concentration - - Weight 60.3 kg (133 lb) 06/17/2025 4:03 PM EDT Height 167 cm (5' 5.75 ) 05/28/2025 8:57 AM EDT Body Mass Index 21.63 05/28/2025 8:57 AM EDT Plan of Treatment Health Maintenance Due Date Last Done Comments Family Planning (PISQ) 2013 COVID-19 Vaccine ( season) 2025 03/24/2022, 06/23/2021 Influenza Vaccine (#1) 2025 , 10/01/2019, 09/03/2018, Additional history exists SDOH Screening 05/20/2026 05/20/2025 Alcohol/Substance Use Screening 05/28/2026 05/28/2025 Depression Screening 05/28/2026 05/28/2025, 05/28/20 Disability Screening 05/28/2026 05/28/2025 Tobacco Screening 05/28/2026 [...] Procedure Name Priority Date/Time Associated Diagnosis Comments LIPID PANEL, STANDARD Routine 06/09/2025 9:04 AM EDT Annual physical exam COMPREHENSIVE METABOLIC PANEL Routine 06/09/2025 9:04 AM EDT Annual physical exam CBC WITH AUTO DIFFERENTIAL Routine 06/09/2025 9:04 AM EDT Annual physical exam HEPATITIS C AB W/REFL TO HCV RNA, QN, PCR Routine 07/30/2023 3:21 PM EDT Other fatigue HIV 1/2 ANTIGEN/ANTIBODY, FOURTH GENERATION W/RFL Routine 05/17/2021 1:06 PM EDT from Last 3 Months or Most Recently Relevant to Health Maintenance Results * CBC auto differential (06/09/2025 9:04 AM EDT) White Blood Count 6.3 4.8 - 10.8 X10*3/uL [facility] Red Blood Count 4.78 4.60 - 5.80 X10*6/uL [facility] Hemoglobin 14.3 14.0 - 18.0 g/dl [facility] Hematocrit 42.4 42.0 - 52.0 % [facility] Mean Corpuscular Volume 88.7 80.0 - 98.0 fL [facility] Mean Corpuscular Hemoglobin 29.9 27.0 - 33.0 pg [facility] Mean Corpuscular HGB Conc 33.7 31.0 - 36.0 g/dl [facility] Red Cell Distribution Width 11.9 11.0 - 16.0 % [facility] Platelet Count 315 160 - 400 X10*3/uL [facility] Mean Platelet Volume 10.4 9.4 - 12.4 fL [facility] Neutrophils Percent Auto 61.8 45 - 73 % [facility] Imm Gran Pct Auto 0.3 0.0 - 0.4 % [facility] Lymphocytes Percent Auto 27.4 20 - 40 % [facility] Monocytes Percent Auto 8.7 2 - 11 % [facility] Eosinophils Percent Auto 1.3 0 - 4 % [facility] Basophils Percent Auto 0.5 0 - 2 % [facility] NRBC Pct Auto 0.0 0.0 - 0.2 /100WBC [facility] Neutrophils Absolute Auto 3.9 2.0 - 8.3 x10*3/uL [facility] Imm Gran Abs Auto 0.02 0.00 - 0.03 X10*3/uL [facility] Lymphocytes Absolute Auto 1.7 1.2 - 4.9 X10*3/uL [facility] Monocytes Absolute Auto 0.6 0.1 - 1.2 X10*3/uL [facility] Eosinophils Absolute Auto 0.1 0.0 - 0.4 X10*3/uL [facility] Basophils Absolute Auto 0.0 0.0 - 0.2 X10*3/uL [facility] NRBC Abs Auto 0.000 0.0 - 0.012 X10*3/uL [facility] Blood Venous blood specimen / Unknown 06/09/2025 9:04 AM EDT 06/09/2025 9:04 AM EDT us Criselda Tejada MD LAB BLOOD ORDERABLES Final Re sult Performing Organization Address City/[facility]/ZIP Co de Phone Number [facility] [address] [place] [address] [phone] * Lipid Panel, Standard (06/09/2025 9:04 AM EDT) Triglycerides 44 <150 mg/dL [facility] Comment:Desirable Triglyceri de: less than 150 mg/dLBorderline High Triglyceride 150-199 mg/dLHigh Triglyceride: 200-499 mg/dLVery High Triglyceride: greater than or equal to 5OO mg/dL Cholesterol 140 <200 mg/dL [facility] Comment:Desirable Cholestero l: less than 200 mg/dLBorderline High Cholesterol: 200-239 mg/dLHigh Cholesterol: greater than 239 mg/dL LDL Cholesterol Calculated 86 <100 mg/dL [facility] Comment:Desirable LDL: less than 100 mg/dLNear Optimal/Above Optimal LDL: 110- 129 mg/dLBorderline High LDL: 130-159 mg/dLHigh LDL: 160-189 mg/dLVery High LDL: greater than or equal to 190 mg/dL HDL Cholesterol 46 >40 mg/dL [facility] Comment:Desirable HDL: great er than 40 mg/dL Note: This HDL assay may give artificially low results in patients with liver disease. Blood Venous blood specimen / Unknown 06/09/2025 9:04 AM EDT 06/09/2025 9:04 AM EDT us Criselda Tejada MD LAB BLOOD ORDERABLES Final Re sult Performing Organization Address City/[facility]/ZIP Co de Phone Number [facility] [address] [place] [address] [phone] * (ABNORMAL) Comprehensive Metabolic Panel (06/09/2025 9:04 AM EDT) Sodium 139 135 - 145 mmol/L [facility] Potassium 3.9 3.3 - 5.1 mmol/L [facility] Chloride 105 96 - 108 mmol/L [facility] Carbon Dioxide 29 22 - 29 mmol/L [facility] Anion Gap 9(L) 12 - 20 [facility] Urea Nitrogen (BUN) 13 9 - 16 mg/dL [facility] Creatinine, Serum 0.86 0.5 - 1.4 mg/dL [facility] Estimated Glomerular Filt Rate >60 [facility] Comment:Chronic Kidney Disea se: Estimated GFR < 60 mL/min/[id number] Kidney Disease: Estimated GFR < 15 mL/min/1.73m2 Glucose 89 60 - 115 mg/dL [facility] Calcium 9.0 8.4 - 10.2 mg/dL [facility] Bilirubin, Total 0.6 0.0 - 1.0 mg/dL [facility] Aspartate Amino Transferase 15 5 - 37 U/L [facility] Alanine Aminotransferase 13 0 - 40 U/L [facility] Total Protein 7.3 6.5 - 8.0 g/dL [facility] Albumin Level 4.4 3.5 - 5.0 g/dL [facility] Alkaline Phosphatase 52 39 - 117 U/L [facility] Blood Venous blood specimen / Unknown 06/09/2025 9:04 AM EDT 06/09/2025 9:04 AM EDT us Criselda Tejada MD LAB BLOOD ORDERABLES Final Re sult [facility] [address] [place] [phone] [phone] * Hepatitis C Antibody with Reflex to HCV, RNA, Quantitative, Real-Time PCR (07/30/2023 3:21 PM EDT) Hepatitis C Antibody Nonreactive Nonreactive [facility] Comment:Antibodies to HCV no t detected; does not exclude early acuteHCV infection. Blood Venous blood specimen / Unknown 07/30/2023 3:21 PM EDT 07/30/2023 5:26 PM EDT us Isac Avila MD LAB BLOOD ORDERABL ES Final Result Performing Organization Address City/[facility]/ZIP Co de Phone Number [facility] [address] [place] [phone] [phone] * HIV 1/2 ANTIGEN/ANTIBODY,FOURTH GENERATION W/RFL (05/17/2021 1:06 PM EDT) [facility] HIV-1/2 ANTIGEN AND ANTIBODIES, 4TH GENERATION W/ REFLEX NON-REACT YADIRA NON-REACT YADIRA [facility] Comment: HIV-1 antigen and HIV-1/HIV-2 [...] purpose. For additional information please refer to http://education.[employer]/faq/CFQ825 (This link is being provided for informational/ educational purposes only.) The performance of this assay has not been clinically validated in patients less than 2 years old. 05/17/2021 1:06 PM EDT us Bear Juarez MD LAB BLOOD ORDERABLES Final Resul t [facility] [address] from Last 3 Months or Most Recently Relevant to Health Maintenance Insurance [facility] C3 Care Teams Fitness Sales Consultant Relationship Specialty Start Date End Date Criselda Tejada MD [address] [place] [phone] PCP - General Family Medicine 02/28/24 Luda Moscoso MD Consulting Physician Gastroenterology 04/06/24
[2025-07-25 08:08] LABS: TS Negative Control Passed; TS Panel A 0; TS Panel B 0; TS Positive Control Passed; TSpotTB Negative (Negative)
== END 2025-07-22 14:36 | disposition home or self-care (01) ==
LOC: HO.CHCLDS 14:35
PROVIDERS: Visit Provider Family Medicine
DX: Z11.1 Encounter for screening for respiratory tuberculosis (principal)
CPT/HCPCS: 36415; 86481